=== PATIENT | female | born 1955 | race Caucasian/White ===

== ENCOUNTER → 2016-08-23 | Outpatient (REF) | payer OTHER ==
[~2016-08-23] MED LIST: HCTZ; HYDR25TA6; LISI20TA5; LISI40TA; TRAZ100T; VALI10TA; VALI5TAB; ZEST20TA4; ZOLO100T; lisinopril
== END ==
LOC: M SFHCCLAY 11:37
PROVIDERS: ATTEND Family Medicine
DX: E11.9 Type 2 diabetes mellitus without complications (principal)

== ENCOUNTER → 2016-08-25 | Outpatient (CLI) | payer OTHER ==
--- NOTE | 2016-09-06 01:22 | ECWPNPC ---
PATIENT NAME: INGA MARTINEZ : 1955 GENDER: FEMALE VISIT DATE: 08/25/2016 DISCHARGE DATE: 08/25/16 1546 VISIT LOCKED DATE TIME: PHYSICIAN: ALBERTO BAKER PHYSICIAN PAGER NO: [phone] RESOURCE: ALBERTO BAKER REASON FOR APPOINTMENT 1. BACK HISTORY OF PRESENT ILLNESS HISTORY OF PRESENT ILLNESS: PAIN THE PATIENT DESCRIBES THE PAIN... FALL RISK SCREENING: SCREENING :NO FALLS IN THE PAST YEAR TODAY'S VISIT: NOTES: FIRST RETURN TO THE CLINIC SINCE INITIAL VISIT 01/2016. CONTINUES TO HAVE PAIN AT CENTER LOW BACK. DESCRIBES PAIN ACHING, OCCASIONALLY SHARP, AND IS TENDER AND INSIDE ANKLE. WALKED 1//2 BLOCKS TO APPOINTMENT AND NOTES THAT ANKLE IS THE MOST PAINFUL AT THIS TIME. RATES PAIN 5-6/10. TODAY. . CURRENT MEDICATIONS TAKING ROPINIROLE HCL 2 MG TABLET 1 TABLET 1 TO 3 HOURS BEFORE BEDTIME ORALLY ONCE A DAY TAKING ASPIRIN 81 MG TABLET 1 TABLET ORALLY ONCE A DAY TAKING LANCETS FREE STYLE ------ ------ - DAILY TAKING LANCET DEVICES - - - SUBCUTANEOUSLY DAILY TAKING [employer] SYSTEM W/DEVICE KIT DIRECTED DAILY TAKING SERTRALINE HCL 100 MG TABLET 2 TABS ORALLY ONCE A DAY TAKING [employer] ULTRA II TEST STRIPS MINI STRIP DIRECTED IN VITRO DAILY TAKING FENOFIBRATE 160 MG TABLET 1 TABLET WITH A MEAL ORALLY ONCE A DAY TAKING TRAZODONE HCL 100 MG TABLET 1/2-1 TAB ORALLY BEDTIME TAKING [employer] ULTRA TEST - STRIP USE TO TEST DAILY DIRECTED TAKING PRADAXA 150 MG CAPSULE 1 CAP(S) ORALLY BID TAKING LISINOPRIL 2.5 MG TABLET DIRECTED ORALLY TAKING BISOPROLOL FUMARATE 5 MG TABLET 1/2 TABLET ORALLY ONCE A DAY TAKING GABAPENTIN 600 MG TABLET 1 TABLET ORALLY BEDTIME TAKING METFORMIN HCL 1000 MG TABLET 1 TABLET WITH MEALS ORALLY TWICE A DAY TAKING GLIMEPIRIDE 4 MG TABLET 1&1/2 TABLET ORALLY ONCE A DAY TAKING ATORVASTATIN CALCIUM 10 MG TABLET 1 TABLET ORALLY ONCE A DAY TAKING JARDIANCE 10 MG TABLET TAKE ONE TABLET BY MOUTH EVERY DAY ORALLY DAILY NOT-TAKING FENOFIBRATE 145 MG TABLET 1 TAB(S) ORALLY DAILY NOT-TAKING INSULIN PEN NEEDLE 32G X 5 MM MISCELLANEOUS 1 SUBCUTANEOUSLY DAILY NOT-TAKING ABILIFY 2 MG TABLET 1 TABLET ORALLY ONCE A DAY MEDICATION LIST REVIEWED AND RECONCILED WITH THE PATIENT PAST MEDICAL HISTORY HYPERTENSION DEPRESSION LEFT MASTECTOMY OSTEOARTHRITIS OF THE HANDS KNEES AND SHOULDERS MENOPAUSAL RESTLESS LEG SYNDROME ELEVATED CHOLESTEROL GERD DEGENERATIVE CERVICAL SPINE SUICIDAL ATTEMPT BY OVERDOSE OF VALIUM 02/10 ONE VITAMIN D GENERALIZED OSTEOARTHRITIS 05/12 HEART DISEASE UNSPECIFIED ESSENTIAL HYPERTENSION OTHER AND UNSPECIFIED HYPERLIPIDEMIA UNSPECIFIED VITAMIN D DEFICIENCY UNSPECIFIED ANEMIA DIARRHEA ATRIAL FIBRILLATION UNSPECIFIED VITAMIN D DEFICIENCY PERSONAL HISTORY OF MALIGNANT NEOPLASM OF BREAST MIGRAINE WITHOUT AURA, WITHOUT MENTION OF INTRACTABLE MIGRAINE WITHOUT MENTION OF STATUS MIGRAINOSUS DIABETES MELLITUS WITHOUT MENTION OF COMPLICATION, TYPE II OR UNSPECIFIED TYPE, NOT STATED UNCONTROLLED MIXED HYPERLIPIDEMIA PSORIASIS RELATED DISEASE NEC GENERALIZED OSTEOARTHROSIS, INVOLVING MULTIPLE SITES PERSONAL HISTORY OF NONCOMPLIANCE WITH MEDICAL TREATMENT, PRESENTING HAZARDS TO HEALTH UMBILICAL HERNIA WITHOUT MENTION OF OBSTRUCTION OR GANGRENE BREAST CANCER SCREENING RESTLESS LEGS SYNDROME OTHER SCREENING MAMMOGRAM NEED FOR PNEUMOCOCCAL VACCINE HX OF TOBACCO USE, PRESENTING HAZARDS TO HEALTH KYPHOSCOLIOSIS AUDITORY HALLUCINATION AUDITORY HALLUCINATION SARAVANAN ALLERGIES LATEX: RASH: ALLERGY DEMEROL: DIZZINES, CONFUSION, LIGHTHEADED: SIDE EFFECTS SOCIAL HISTORY GENERAL: TOBACCO USE ARE YOU A:CURRENT SMOKER HOW MANY CIGARETTES A DAY DO YOU SMOKE?11-20 HOW SOON AFTER YOU WAKE UP DO YOU SMOKE YOUR FIRST CIGARETTE?31-60 MIN HOW OFTEN DO YOU SMOKE CIGARETTES?EVERY DAY PATIENT COUNSELED ON THE DANGERS OF TOBACCO USE AND URGED TO QUIT:08/23/2016 ARE YOU INTERESTED IN QUITTING?THINKING ABOUT QUITTING PREVIOUS QUIT ATTEMPTS?YES, MORE THAN 6 MONTHS AGO. COUNSELED THE PATIENT ON SMOKING CESSATION, EDUCATION [id number]/22/2017 ADDITIONAL FINDINGS: TOBACCO USERHEAVY CIGARETTE SMOKER (20-39 CIGS/DAY) SMOKING CESSATION INFORMATION GIVEN08/23/2016 VAPORNO E-CIGARETTEYES BMI CARE GOAL FOLLOW-UP ABOVE NORMAL BMI FOLLOW-UPDIETARY MANAGEMENT EDUCATION, GUIDANCE, AND COUNSELING ALCOHOL SCREENING DID YOU HAVE A DRINK CONTAINING ALCOHOL IN THE PAST YEAR?NO POINTS0 INTERPRETATIONNEGATIVE RECREATIONAL DRUG USE DRUG USE? NO , PATIENT DENIES ABUSE OR MISSUSED OF ANY MEDICATION . , PATIENT DENIES USE OF ANY ILLEGAL SUBSTANCE INCLUDING MARIJUANA OR COCAINE . . CAFFEINE CAFFEINE USE? YES , HOW OFTEN AND HOW MUCH? 2-3 CUPS COFFEE ; 2-3 SODAS PER DAY. HIV / HEP-C SCREENING HIV TEST OFFERED TO PATIENT:YES DATE OFFERED:08/23/2016 TEST ACCEPTED:NO REASON:PATIENT DECLINED HEP-C TEST OFFERED TO PATIENT:YES DATE OFFERED:08/23/2016 TEST ACCEPTED:NO REASON:PATIENT DECLINED MARITAL STATUS: .. LANGUAGE AMHARIC. LEARNING BARRIERS / SPECIAL NEEDS BARRIERS TO LEARNING?NO HEARING IMPAIRED?NO VISION IMPAIRED?YES :CORRECTIVE LENSES COGNITIVELY IMPAIRED?NO READINESS TO LEARN?YES LEARNING PREFERENCES?NO LEARNING CAPABILITIES PRESENT?YES EMOTIONAL BARRIERS?NO SPECIAL DEVICES?NO FAMILY PROGRAM SPECIALIST NEEDED?NO PSYCHOLOGICAL HX TREATMENT YES , HOW OFTEN AND HOW MUCH? EVERY 2-3 WEEKS FOR MANY YEARS. PAIN CLINIC PFS, CLERGY, PUBLIC HEALTH REFERRALS PFS REFERRAL NEEDED? NO , CLERGY REFERRAL NEEDED? NO , PUBLIC HEALTH REFERRAL NEEDED? NO , WAS THE PROVIDER NOTIFIED OF ANY PERTINENT INFO? NO . PATIENT: DENIES USE OF ANY ILLEGAL SUBSTANCE INCLUDING MARIJUANA OR COCAINE, REPORTS BEING EMOTIONALLY STABLE, REPORTS HAVING A SAFE AND ADEQUATE PLACE TO STORE THE MEDICATIONS, IS AWARE THAT THEY ARE RESPONSIBLE AND GUARDIAN OF THE PRESCRIBED MEDICATIONS, DENIES RECREATIONAL DRUG USE. ADVANCED DIRECTIVES HEALTH CARE PROXY? YES , POWER OF [place] TOWER LOADER? NO , NAME OF HCP TY OVIEDO, CONTACT # FOR HCP [phone], IF YES, DO YOU HAVE A COPY WITH YOU? NO , DO YOU HAVE A DNR? NO , IF YES, DO YOU HAVE A COPY WITH YOU? NO . TRAVEL OUTSIDE US: NO. HOUSING: RENTS APARTMENT. REVIEW OF SYSTEMS CONSTITUTIONAL: ANY CHANGE IN YOUR MEDICAL CONDITION? NO . CHILLS NO . FEVER NO . INFECTION: DO YOU HAVE NEW INFECTIONS? NO . DO YOU HAVE HISTORY OF MRSA? NO . MUSCULOSKELETAL: ANY NEW PATTERNS OF PAIN OR NUMBNESS? NO . GASTROENTEROLOGY: ANY NEW CHANGE IN BOWEL CONTROL? YES ONCE A MONTH BAD DIARHEA . GENITOURINARY: ANY NEW CHANGE IN BLADDER CONTROL? NO . IS THERE A CHANCE YOU COULD BE ? NO . HEMATOLOGY/LYMPH: DO YOU TAKE ANY BLOOD THINNERS? (FOR EXAMPLE- COUMADIN, PLAVIX, AGGRENOX, PLATEL, PRADAXA, OR XARELTO) NO . WHEN WAS YOUR LAST DOSE? DATE: TIME: . NEUROLOGY: HAVE YOU FALLEN IN THE PAST 6 MONTHS? NO . ANY NEW EXTREMITY NUMBNESS OR WEAKNESS? NO . CARDIOLOGY: DO YOU HAVE A PACEMAKER OR DEFIBRILLATOR? NO . CHEST PAIN DENIES . RESPIRATORY: HAVE YOU BEEN SICK IN THE PAST WEEK? NO . FEVER NO . FLU LIKE SYMPTOMS? NO . COUGH SMOKERS COUGH. IS CONSIDERING SMOKING CESSATION . INTEGUMENTARY: DO YOU HAVE ANY RASHES OR OPEN SORES? NO . ALLERGIC/IMMUNO: ARE YOU ALLERGIC TO SHELLFISH OR IV DYE? NO . ANY NEW ALLERGIES? NO . PSYCHIATRIC: DO YOU HAVE THOUGHTS OF HURTING YOURSELF OR SOMEONE ELSE? NO . ARE YOU ABUSED, NEGLECTED, OR IN AN UNSAFE ENVIRONMENT? NO . ENDOCRINOLOGY: ARE YOU DIABETIC? YES . OTHER: DO YOU NEED ANY PRESCRIPTIONS? NO . IF YES, PLEASE LIST: ____ . ANY NEW PROBLEMS WITH YOUR MEDICATIONS? NO . WHEN DID YOU LAST EAT? ____ . WHEN DID YOU LAST DRINK? ____ . WHAT DID YOU LAST DRINK? ____ . NAME OF PERSON DRIVING YOU HOME? ____ . DO YOU HAVE ANY OTHER QUESTIONS OR CONCERNS NO . REVIEWED BY: PROVIDER: ALBERTO BRUNNER . VITAL SIGNS WT 205.2 LBS, HT 5', BMI 40.07 INDEX, BP 127/77 MM HG, HR 99 /MIN, RR 18 /MIN, TEMP 97.2 F, OXYGEN SAT % 94%, NA INITIALS SC 14:46. EXAMINATION GENERAL EXAMINATION: PSYCHALERT , ORIENTED X 3 , APPROPRIATE MOOD AND AFFECT . LUNGS:CLEAR TO AUSCULTATION BILATERALLY, NO WHEEZES, RALES OR RHONCHI. HEART:HEART RATE REGULAR. MUSCULOSKELETAL:POINT TENDERNESS OVER LEFT LSA AND LEFT SIJ. , TRIGGER POINTS AND TIGHT FIBROUS BANDS IDENTIFIED OVER LUMBAR PARAVEREBRAL MUSCLES AND ACROSS THE SACRUM. DECREASE IN ROM WITH FELXION, EXTENSION AND ROTATION. GAIT NONANTALGIC. ASSESSMENTS LUMBAR FACET ARTHROPATHY - M12.88 (PRIMARY) LOW BACK PAIN - M54.5 MYALGIA - M79.1 TREATMENT LUMBAR FACET ARTHROPATHY INJECTION FACET JOINT/NERVE NOMAN/SACRALALBERTO BAKER 08/25/2016 3:23:19 PM > DIAGNOSTIC LUMBAR FACET BLOCK #1 LEFT SIDE L4-5, L5-S1 ALBERTO BAKER 08/25/2016 3:23:19 PM > DIAGNOSTIC LUMBAR FACET BLOCK #1 LEFT SIDE L4-5, L5-S1 ALBERTO BAKER 08/25/2016 3:23:41 PM > ON PRADAXA NOTES: CONTINUE CURRENT MEDS PER PRIMARY DOC, KEEP WALKINGHOLD BLOOD SUGAR MEDS AM OF PROCEDURE. WILL GET OK FROM DR VIRAMONTES TO HOLD PRADAXA FOR 72 HOURS PRIOR TO PROCEDURE. PROCEDURE CODES FA211 ESTABILISHED PATIENT [facility] CHARGE DISPOSITION & COMMUNICATION FOLLOW UP ONE MONTH (REASON: NEED OK FROM DR VIRAMONTES TO HOLD PRAHERIBERTO, AUTH FORDIAGNOSTIC FACET BLOCK AT L4-5, L5S1) ELECTRONICALLY SIGNED BY NAYELY PEÑA ON 09/05/2016 AT 10:36 AM EDT DISCLAIMER : THIS IS A VISIT SUMMARY EXTRACTED FROM THE [facility] CHART. IT IS NOT A COPY OF THE [facility] PROGRESS NOTE. ANDREW
== END ==
LOC: M PAIN 14:40
PROVIDERS: ATTEND Nurse Practitioner Family
DX: M12.88 Other specific arthropathies, not elsewhere classified, other specified site (principal); M54.5 Low back pain; M79.1 Myalgia; Z79.82 Long term (current) use of aspirin; Z79.891 Long term (current) use of opiate analgesic; Z79.899 Other long term (current) drug therapy; Z79.84 Long term (current) use of oral hypoglycemic drugs; F17.210 Nicotine dependence, cigarettes, uncomplicated; Z91.040 Latex allergy status; Z88.5 Allergy status to narcotic agent; I10 Essential (primary) hypertension; I48.2 Chronic atrial fibrillation; E11.9 Type 2 diabetes mellitus without complications

== ENCOUNTER → 2016-09-28 | Outpatient (CLI) | payer OTHER ==
[~2016-09-28] MED LIST changes: +BUPIVACAINE HCL 0.25% 30 ML VIAL As Ordered ONE; +ISOVUE-M 300 61% 15ML VIAL (Q9967) As Ordered ONE; +LIDOCAINE 1% SDV INJ 30 ML VIAL As Ordered ONE
--- NOTE | 2016-10-01 23:54 | ECWPNPC ---
PATIENT NAME: INGA MARTINEZ : 1955 GENDER: FEMALE VISIT DATE: 09/28/2016 DISCHARGE DATE: 09/28/16 1249 VISIT LOCKED DATE TIME: PHYSICIAN: BOB CHARLES PHYSICIAN PAGER NO: [phone] RESOURCE: BOB CHARLES REASON FOR APPOINTMENT 1. LUMBAR FACET HISTORY OF PRESENT ILLNESS HISTORY OF PRESENT ILLNESS: PAIN THE PATIENT DESCRIBES THE PAIN... 61 YEAR OLD FEMALE PATIENT WITH HISTORY OF CHRONIC LOW BACK PAIN. PATIENT DESCRIBES THE PAIN ACHING, BURNING, AND TENDER WITH A PAIN SCORE OF 8.5/10 ON TODAY'S VISIT. PATIENT REPORTS OF NUMBNESS DOWN THE LEG, AND HER BACK IS HURTING THE MOST TODAY. PATIENT STATES THAT SHE IS TAKING PRADAXA DUE TO ATRIAL FIBRILLATION. PATIENT DENIES UNEXPLAINABLE WEIGHT LOSS, FEVER, CHILLS, NEW CHANGES ON HER URINARY OR BOWEL CONTROL. FALL RISK SCREENING: SCREENING :TWO OR MORE FALLS WITHOUT INJURY IN THE PAST YEAR CURRENT MEDICATIONS TAKING ROPINIROLE HCL 2 MG TABLET 1 TABLET 1 TO 3 HOURS BEFORE BEDTIME ORALLY ONCE A DAY, NOTES: 09/27/16@2130 TAKING ASPIRIN 81 MG TABLET 1 TABLET ORALLY ONCE A DAY, NOTES: 0600 TAKING LANCETS FREE STYLE ------ ------ - DAILY TAKING LANCET DEVICES - - - SUBCUTANEOUSLY DAILY TAKING [employer] ULTRA SYSTEM W/DEVICE KIT DIRECTED DAILY TAKING [employer] ULTRA II TEST STRIPS MINI STRIP DIRECTED IN VITRO DAILY TAKING FENOFIBRATE 160 MG TABLET 1 TABLET WITH A MEAL ORALLY ONCE A DAY, NOTES: 09/27/16@1800 TAKING [employer] ULTRA TEST - STRIP USE TO TEST DAILY DIRECTED TAKING PRADAXA 150 MG CAPSULE 1 CAP(S) ORALLY BID, NOTES: 09/24/16/@1900 TAKING LISINOPRIL 2.5 MG TABLET DIRECTED ORALLY , NOTES: 0600 TAKING BISOPROLOL FUMARATE 5 MG TABLET 1/2 TABLET ORALLY ONCE A DAY, NOTES: 0600 TAKING GABAPENTIN 600 MG TABLET 1 TABLET ORALLY BEDTIME, NOTES: 09/27/16@1900 TAKING METFORMIN HCL 1000 MG TABLET 1 TABLET WITH MEALS ORALLY TWICE A DAY, NOTES: 0600 TAKING ATORVASTATIN CALCIUM 10 MG TABLET 1 TABLET ORALLY ONCE A DAY, NOTES: 0600 TAKING JARDIANCE 10 MG TABLET TAKE ONE TABLET BY MOUTH EVERY DAY ORALLY DAILY, NOTES: 0600 TAKING SERTRALINE HCL 100 MG TABLET 2 TABS ORALLY ONCE A DAY, NOTES: 0600 TAKING TRAZODONE HCL 100 MG TABLET 1/2-1 TAB ORALLY BEDTIME, NOTES: TAKING GLIMEPIRIDE 4 MG TABLET 1&1/2 TABLET ORALLY ONCE A DAY, NOTES: 0600 NOT-TAKING FENOFIBRATE 145 MG TABLET 1 TAB(S) ORALLY DAILY NOT-TAKING INSULIN PEN NEEDLE 32G X 5 MM MISCELLANEOUS 1 SUBCUTANEOUSLY DAILY NOT-TAKING ABILIFY 2 MG TABLET 1 TABLET ORALLY ONCE A DAY MEDICATION LIST REVIEWED AND RECONCILED WITH THE PATIENT PAST MEDICAL HISTORY HYPERTENSION DEPRESSION LEFT MASTECTOMY OSTEOARTHRITIS OF THE HANDS KNEES AND SHOULDERS MENOPAUSAL RESTLESS LEG SYNDROME ELEVATED CHOLESTEROL GERD DEGENERATIVE CERVICAL SPINE SUICIDAL ATTEMPT BY OVERDOSE OF VALIUM 02/10 ONE VITAMIN D GENERALIZED OSTEOARTHRITIS 05/12 HEART DISEASE UNSPECIFIED ESSENTIAL HYPERTENSION OTHER AND UNSPECIFIED HYPERLIPIDEMIA UNSPECIFIED VITAMIN D DEFICIENCY UNSPECIFIED ANEMIA DIARRHEA ATRIAL FIBRILLATION UNSPECIFIED VITAMIN D DEFICIENCY PERSONAL HISTORY OF MALIGNANT NEOPLASM OF BREAST MIGRAINE WITHOUT AURA, WITHOUT MENTION OF INTRACTABLE MIGRAINE WITHOUT MENTION OF STATUS MIGRAINOSUS DIABETES MELLITUS WITHOUT MENTION OF COMPLICATION, TYPE II OR UNSPECIFIED TYPE, NOT STATED UNCONTROLLED MIXED HYPERLIPIDEMIA PSORIASIS RELATED DISEASE NEC GENERALIZED OSTEOARTHROSIS, INVOLVING MULTIPLE SITES PERSONAL HISTORY OF NONCOMPLIANCE WITH MEDICAL TREATMENT, PRESENTING HAZARDS TO HEALTH UMBILICAL HERNIA WITHOUT MENTION OF OBSTRUCTION OR GANGRENE BREAST CANCER SCREENING RESTLESS LEGS SYNDROME OTHER SCREENING MAMMOGRAM NEED FOR PNEUMOCOCCAL VACCINE HX OF TOBACCO USE, PRESENTING HAZARDS TO HEALTH KYPHOSCOLIOSIS AUDITORY HALLUCINATION AUDITORY HALLUCINATION SARAVANAN ALLERGIES LATEX: RASH: ALLERGY DEMEROL: DIZZINES, CONFUSION, LIGHTHEADED: SIDE EFFECTS SURGICAL HISTORY EXPLORATORY PELVIC SURGERY APPENDECTOMY CERVICAL BIOPSY BREAST BIOPSY WITH RADICAL MASTECTOMY ON THE LEFT 1996 RIGHT CARPAL TUNNEL TUBAL LIGATION 1991 SURGERY ON HER LEFT FOOT SEPTEMBER 2009 HERNIA-ABDOMINAL 07/2013 D&C WITH POLYP REMOVAL 2013 FAMILY HISTORY FATHER: , BRAIN CANCER MOTHER: , MS PATERNAL GRAND MOTHER: , DIAGNOSED WITH DIABETES 1 BROTHER(S) . 2 SON(S) , 1 DAUGHTER(S) . SOCIAL HISTORY GENERAL: TOBACCO USE ARE YOU A:CURRENT SMOKER PATIENT COUNSELED ON THE DANGERS OF TOBACCO USE AND URGED TO QUIT:09/28/2016 ARE YOU INTERESTED IN QUITTING?THINKING ABOUT QUITTING COUNSELED THE PATIENT ON SMOKING CESSATION, EDUCATION [id number]/27/2017 PAIN CLINIC PFS, CLERGY, PUBLIC HEALTH REFERRALS CLERGY REFERRAL NEEDED?NO WAS THE PROVIDER NOTIFIED OF ANY PERTINENT INFO?NO PFS REFERRAL NEEDED?NO PUBLIC HEALTH REFERRAL NEEDED?NO PATIENT: ____. HOSPITALIZATION/MAJOR DIAGNOSTIC PROCEDURE [facility] REVIEW OF SYSTEMS CONSTITUTIONAL: ANY CHANGE IN YOUR MEDICAL CONDITION? NO . CHILLS NO . FEVER NO . INFECTION: DO YOU HAVE NEW INFECTIONS? NO . DO YOU HAVE HISTORY OF MRSA? NO . MUSCULOSKELETAL: ANY NEW PATTERNS OF PAIN OR NUMBNESS? YES, . GASTROENTEROLOGY: ANY NEW CHANGE IN BOWEL CONTROL? NO . GENITOURINARY: ANY NEW CHANGE IN BLADDER CONTROL? NO . IS THERE A CHANCE YOU COULD BE ? NO . HEMATOLOGY/LYMPH: DO YOU TAKE ANY BLOOD THINNERS? (FOR EXAMPLE- COUMADIN, PLAVIX, AGGRENOX, PLATEL, PRADAXA, OR XARELTO) NO . WHEN WAS YOUR LAST DOSE? DATE: TIME: 09/24/16@1900 . NEUROLOGY: HAVE YOU FALLEN IN THE PAST 6 MONTHS? YES . ANY NEW EXTREMITY NUMBNESS OR WEAKNESS? YES, BOTH LEGS ARE GOING NUMB . CARDIOLOGY: DO YOU HAVE A PACEMAKER OR DEFIBRILLATOR? NO . RESPIRATORY: HAVE YOU BEEN SICK IN THE PAST WEEK? NO . FEVER NO . FLU LIKE SYMPTOMS? NO . COUGH NO . INTEGUMENTARY: DO YOU HAVE ANY RASHES OR OPEN SORES? NO . ALLERGIC/IMMUNO: ARE YOU ALLERGIC TO SHELLFISH OR IV DYE? NO . ANY NEW ALLERGIES? NO . PSYCHIATRIC: DO YOU HAVE THOUGHTS OF HURTING YOURSELF OR SOMEONE ELSE? NO . ARE YOU ABUSED, NEGLECTED, OR IN AN UNSAFE ENVIRONMENT? NO . ENDOCRINOLOGY: ARE YOU DIABETIC? YES . OTHER: DO YOU NEED ANY PRESCRIPTIONS? NO . IF YES, PLEASE LIST: ____ . ANY NEW PROBLEMS WITH YOUR MEDICATIONS? NO . WHEN DID YOU LAST EAT? ____ . WHEN DID YOU LAST DRINK? ____ . WHAT DID YOU LAST DRINK? ____ . NAME OF PERSON DRIVING YOU HOME? ____ . DO YOU HAVE ANY OTHER QUESTIONS OR CONCERNS NO . REVIEWED BY: PROVIDER: BOB CHARLES MD . VITAL SIGNS WT 208.0 LBS, HT 5', BMI 40.62 INDEX, BP 127/80 MM HG, HR 67 /MIN, RR 16 /MIN, TEMP 97.0 F, OXYGEN SAT % 94%, NA INITIALS TL 1048, REVIEWED BY: VD. EXAMINATION : PATIENT IS ALERT O X 3 AND COOPERATIVE. THERE IS TENDERNESS IN THE LOW BACK PARASPINAL MUSCLE GROUP WITH BANDS OF TISSUES, RESTRICTION OF MOVEMENT, AND PRESENCE OF TRIGGER POINTS. ASSESSMENTS MYALGIA - M79.1 (PRIMARY) LOW BACK PAIN - M54.5 SPONDYLOSIS WITHOUT MYELOPATHY OR RADICULOPATHY, LUMBAR REGION - M47.816 SPONDYLOSIS WITHOUT MYELOPATHY OR RADICULOPATHY, LUMBOSACRAL REGION - M47.817 TREATMENT MYALGIA NOTES: WE DISCUSSED SEVERAL ISSUES WITH MS. MARTINEZ'S PAIN MANAGEMENT CASE. AT THIS TIME THE PATIENT WILL CONTINUE ON THE SAME MEDICATION REGIMEN BEFORE. AFTER EXAMINING THE PATIENT SHE IS A GOOD CANDIDATE FOR A TPI, WE DISCUSSED THE RISK, BENEFITS, AND ALTERNATIVES AND THE PATIENT WOULD LIKE TO PROCEED. PATIENT WILL BE BOOKED PENDING APPROVAL. INSTRUCTIONS WERE GIVEN, QUESTIONS WERE ANSWERED, PATIENT REPORTS UNDERSTANDING AND AGREES WITH THE PLAN. I, PAUL WILKERSON, DOCUMENTED THE ABOVE INFORMATION ACTING A SCRIBE FOR DR. CHARLES. I HAVE REVIEWED THE ABOVE DOCUMENT, WRITTEN BY PAUL WILKERSON SCRIBMerari AND I VERIFY THAT IT IS ACCURATE. OTHERS NOTES: TRIGGER POINT INJECTION MATERIAL WAS PRINTED. [facility]NOST[facility] FACET BLOCK (PAIN)[id number] PROCEDURE CODES FA211 ESTABILISHED PATIENT [facility] FACILITY CHARGE G8730 PAIN ASSESS POS TOOL F/U PLAN DOC [id number] DOC MEDS VERIFIED W/PT OR RE DISPOSITION & COMMUNICATION FOLLOW UP TPI PENDING APPROVAL ELECTRONICALLY SIGNED BY BOB CHARLES MD ON 10/01/2016 AT 12:38 PM EDT DISCLAIMER : THIS IS A VISIT SUMMARY EXTRACTED FROM THE [employer] CHART. IT IS NOT A COPY OF THE [employer] PROGRESS NOTE. MTDD
== END ==
LOC: M PAIN 11:00
PROVIDERS: ATTEND Anesthesiology
DX: M79.1 Myalgia (principal); M54.5 Low back pain; M47.816 Spondylosis without myelopathy or radiculopathy, lumbar region; M47.817 Spondylosis without myelopathy or radiculopathy, lumbosacral region; Z79.82 Long term (current) use of aspirin; Z79.84 Long term (current) use of oral hypoglycemic drugs; Z79.891 Long term (current) use of opiate analgesic; Z79.899 Other long term (current) drug therapy; I10 Essential (primary) hypertension; E11.9 Type 2 diabetes mellitus without complications; F32.9 Major depressive disorder, single episode, unspecified; D64.9 Anemia, unspecified; I48.2 Chronic atrial fibrillation; M15.9 Polyosteoarthritis, unspecified; Z85.3 Personal history of malignant neoplasm of breast; E78.00 Pure hypercholesterolemia, unspecified; K21.9 Gastro-esophageal reflux disease without esophagitis; G25.81 Restless legs syndrome; E78.5 Hyperlipidemia, unspecified; Z72.0 Tobacco use

== ENCOUNTER → 2016-10-06 | Outpatient (CLI) | payer OTHER ==
[~2016-10-06] MED LIST changes: +BUPIVACAINE HCL 0.25% 10 ML VIAL As Ordered ONE; -ISOVUE-M 300 61% 15ML VIAL (Q9967) As Ordered ONE; -LIDOCAINE 1% SDV INJ 30 ML VIAL As Ordered ONE; +TRIAMCINOLONE ACETONIDE SUSP 40 MG/ML VIAL (J3301) As Ordered ONE; +diazePAM 5 MG TAB As Ordered ONE; +oxyCODONE 5MG TAB As Ordered ONE
--- NOTE | 2016-10-10 00:18 | ECWPNPC ---
PATIENT NAME: INGA MARTINEZ : 1955 GENDER: FEMALE VISIT DATE: 10/06/2016 DISCHARGE DATE: 10/06/16 1050 VISIT LOCKED DATE TIME: PHYSICIAN: BOB CHARLES PHYSICIAN PAGER NO: [phone] RESOURCE: BOB CHARLES REASON FOR APPOINTMENT 1. TPI HISTORY OF PRESENT ILLNESS HISTORY OF PRESENT ILLNESS: PAIN THE PATIENT DESCRIBES THE PAIN... FALL RISK SCREENING: SCREENING :NO FALLS IN THE PAST YEAR CURRENT MEDICATIONS TAKING ROPINIROLE HCL 2 MG TABLET 1 TABLET 1 TO 3 HOURS BEFORE BEDTIME ORALLY ONCE A DAY, NOTES: 10/05/162199 TAKING ASPIRIN 81 MG TABLET 1 TABLET ORALLY ONCE A DAY, NOTES: 10/06/16599 TAKING LANCETS FREE STYLE ------ ------ - DAILY TAKING LANCET DEVICES - - - SUBCUTANEOUSLY DAILY TAKING [employer] ULTRA SYSTEM W/DEVICE KIT DIRECTED DAILY TAKING [employer] ULTRA II TEST STRIPS MINI STRIP DIRECTED IN VITRO DAILY TAKING FENOFIBRATE 160 MG TABLET 1 TABLET WITH A MEAL ORALLY ONCE A DAY, NOTES: 10/05/161899 TAKING [employer] ULTRA TEST - STRIP USE TO TEST DAILY DIRECTED TAKING PRADAXA 150 MG CAPSULE 1 CAP(S) ORALLY BID, NOTES: 10/06/16599 TAKING LISINOPRIL 2.5 MG TABLET DIRECTED ORALLY ONCE A DAY, NOTES: 10/06/16599 TAKING BISOPROLOL FUMARATE 5 MG TABLET 1/2 TABLET ORALLY ONCE A DAY, NOTES: 10/06/16599 TAKING GABAPENTIN 600 MG TABLET 1 TABLET ORALLY BEDTIME, NOTES: 10/05/162199 TAKING METFORMIN HCL 1000 MG TABLET 1 TABLET WITH MEALS ORALLY TWICE A DAY, NOTES: 10/05/161899 TAKING ATORVASTATIN CALCIUM 10 MG TABLET 1 TABLET ORALLY ONCE A DAY, NOTES: 10/06/16499 TAKING JARDIANCE 10 MG TABLET TAKE ONE TABLET BY MOUTH EVERY DAY ORALLY DAILY, NOTES: 10/05/16599 TAKING SERTRALINE HCL 100 MG TABLET 2 TABS ORALLY ONCE A DAY, NOTES: 10/06/16599 TAKING TRAZODONE HCL 100 MG TABLET 1/2-1 TAB ORALLY BEDTIME, NOTES: 10/05/162199 TAKING GLIMEPIRIDE 4 MG TABLET 1&1/2 TABLET ORALLY ONCE A DAY, NOTES: 10/06/16 0600 NOT-TAKING FENOFIBRATE 145 MG TABLET 1 TAB(S) ORALLY DAILY NOT-TAKING INSULIN PEN NEEDLE 32G X 5 MM MISCELLANEOUS 1 SUBCUTANEOUSLY DAILY NOT-TAKING ABILIFY 2 MG TABLET 1 TABLET ORALLY ONCE A DAY MEDICATION LIST REVIEWED AND RECONCILED WITH THE PATIENT PAST MEDICAL HISTORY HYPERTENSION DEPRESSION LEFT MASTECTOMY OSTEOARTHRITIS OF THE HANDS KNEES AND SHOULDERS MENOPAUSAL RESTLESS LEG SYNDROME ELEVATED CHOLESTEROL GERD DEGENERATIVE CERVICAL SPINE SUICIDAL ATTEMPT BY OVERDOSE OF VALIUM 02/10 ONE VITAMIN D GENERALIZED OSTEOARTHRITIS 05/12 HEART DISEASE UNSPECIFIED ESSENTIAL HYPERTENSION OTHER AND UNSPECIFIED HYPERLIPIDEMIA UNSPECIFIED VITAMIN D DEFICIENCY UNSPECIFIED ANEMIA DIARRHEA ATRIAL FIBRILLATION UNSPECIFIED VITAMIN D DEFICIENCY PERSONAL HISTORY OF MALIGNANT NEOPLASM OF BREAST MIGRAINE WITHOUT AURA, WITHOUT MENTION OF INTRACTABLE MIGRAINE WITHOUT MENTION OF STATUS MIGRAINOSUS DIABETES MELLITUS WITHOUT MENTION OF COMPLICATION, TYPE II OR UNSPECIFIED TYPE, NOT STATED UNCONTROLLED MIXED HYPERLIPIDEMIA PSORIASIS RELATED DISEASE NEC GENERALIZED OSTEOARTHROSIS, INVOLVING MULTIPLE SITES PERSONAL HISTORY OF NONCOMPLIANCE WITH MEDICAL TREATMENT, PRESENTING HAZARDS TO HEALTH UMBILICAL HERNIA WITHOUT MENTION OF OBSTRUCTION OR GANGRENE BREAST CANCER SCREENING RESTLESS LEGS SYNDROME OTHER SCREENING MAMMOGRAM NEED FOR PNEUMOCOCCAL VACCINE HX OF TOBACCO USE, PRESENTING HAZARDS TO HEALTH KYPHOSCOLIOSIS AUDITORY HALLUCINATION AUDITORY HALLUCINATION SARAVANAN ALLERGIES LATEX: RASH: ALLERGY DEMEROL: DIZZINES, CONFUSION, LIGHTHEADED: SIDE EFFECTS SURGICAL HISTORY EXPLORATORY PELVIC SURGERY APPENDECTOMY CERVICAL BIOPSY BREAST BIOPSY WITH RADICAL MASTECTOMY ON THE LEFT 1996 RIGHT CARPAL TUNNEL TUBAL LIGATION 1991 SURGERY ON HER LEFT FOOT SEPTEMBER 2009 HERNIA-ABDOMINAL 07/2013 D&C WITH POLYP REMOVAL 2013 HOSPITALIZATION/MAJOR DIAGNOSTIC PROCEDURE [facility] REVIEW OF SYSTEMS CONSTITUTIONAL: ANY CHANGE IN YOUR MEDICAL CONDITION? NO . CHILLS NO . FEVER NO . INFECTION: DO YOU HAVE NEW INFECTIONS? NO . DO YOU HAVE HISTORY OF MRSA? NO . MUSCULOSKELETAL: ANY NEW PATTERNS OF PAIN OR NUMBNESS? NO . GASTROENTEROLOGY: ANY NEW CHANGE IN BOWEL CONTROL? NO . GENITOURINARY: ANY NEW CHANGE IN BLADDER CONTROL? NO . IS THERE A CHANCE YOU COULD BE ? NO . HEMATOLOGY/LYMPH: DO YOU TAKE ANY BLOOD THINNERS? (FOR EXAMPLE- COUMADIN, PLAVIX, AGGRENOX, PLATEL, PRADAXA, OR XARELTO) YES . WHEN WAS YOUR LAST DOSE? DATE: TIME: 10/06/16 0600 . NEUROLOGY: HAVE YOU FALLEN IN THE PAST 6 MONTHS? YES . ANY NEW EXTREMITY NUMBNESS OR WEAKNESS? NO . CARDIOLOGY: DO YOU HAVE A PACEMAKER OR DEFIBRILLATOR? NO . RESPIRATORY: HAVE YOU BEEN SICK IN THE PAST WEEK? NO . FEVER NO . FLU LIKE SYMPTOMS? NO . COUGH NO . INTEGUMENTARY: DO YOU HAVE ANY RASHES OR OPEN SORES? NO . ALLERGIC/IMMUNO: ARE YOU ALLERGIC TO SHELLFISH OR IV DYE? NO . ANY NEW ALLERGIES? NO . PSYCHIATRIC: DO YOU HAVE THOUGHTS OF HURTING YOURSELF OR SOMEONE ELSE? NO . ARE YOU ABUSED, NEGLECTED, OR IN AN UNSAFE ENVIRONMENT? NO . ENDOCRINOLOGY: ARE YOU DIABETIC? YES . OTHER: DO YOU NEED ANY PRESCRIPTIONS? NO . IF YES, PLEASE LIST: ____ . ANY NEW PROBLEMS WITH YOUR MEDICATIONS? NO . WHEN DID YOU LAST EAT? 1800 . WHEN DID YOU LAST DRINK? THIS AM . WHAT DID YOU LAST DRINK? WATER . NAME OF PERSON DRIVING YOU HOME? MITCHELL KNIGHT . DO YOU HAVE ANY OTHER QUESTIONS OR CONCERNS NO . REVIEWED BY: PROVIDER: . VITAL SIGNS WT 210.2 LBS, HT 5', BMI 41.05 INDEX, BP 147/66 MM HG, HR 71 /MIN, RR 18 /MIN, TEMP 97.2 F, OXYGEN SAT % 94%, NA INITIALS TL 0919, REVIEWED BY: LS. ASSESSMENTS MYALGIA - M79.1 (PRIMARY) PROCEDURES PN TRIGGER POINT INJECTION WITH STEROIDS PRE PROCEDURE DIAGNOSIS 1. MYALGIA 2. PAIN AT BILATERAL LOWER BACK AREA POST PROCEDURE DIAGNOSIS 1. MYALGIA 2. PAIN AT BILATERAL LOWER BACK AREA PROCEDURE TRIGGER POINT INJECTION AT BILATERAL LOWER BACK AREA SURGEON DR. 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 I EVALUATE THE PATIENT AND REVIEWED THE CHART. THERE IS EVIDENCE OF BANDS OF TISSUE WITH RESTRICTION OF MOVEMENT AND PRESENCE OF TRIGGER POINT AT THE AFFECTED AREA. I WENT OVER THE RISKS, ALTERNATIVES, AND BENEFITS ASSOCIATED WITH THIS PROCEDURE. THE PATIENT WOULD LIKE TO PROCEED AND GIVE CONSENT TO PERFORMED THE PROCEDURE. THE PATIENT DENIES UNEXPLAINABLE WEIGHT LOSS, FEVER, CHILLS, OR NEW CHANGES IN URINARY OR BOWEL CONTROL DESCRIPTION OF PROCEDURE THE PATIENT WAS BROUGHT TO THE PROCEDURE ROOM AND PLACED IN THE SITTING POSITION. THE AREA WAS CLEANED WITH ALCOHOL. THE PROCEDURE WAS DONE USING ASEPTIC STERILE TECHNIQUE. I CHECKED LATERALITY AND THE LEVEL WHERE THE PROCEDURE WAS GOING TO BE PERFORMED WITH THE PATIENT AND THE SUPPORTING STAFF AT THE MOMENT OF THE TIME OUT IN THE PROCEDURE ROOM. USING A 25-GAUGE NEEDLE, TRIGGER POINTS WERE INJECTED AT THE RIGHT AND LEFT LOWER BACK AREA WITH A TOTAL OF 40 ML OF BUPIVACAINE 0.25% AND KENALOG 40 MG. THERE WAS NO EVIDENCE OF BLOOD, PARESTHESIA OR CEREBROSPINAL FLUID DURING THE PROCEDURE. THE PATIENT WAS SENT TO THE RECOVERY ROOM. THE PATIENT WAS MOVING THE EXTREMITIES AND DOING WELL. THERE WAS NO COMPLICATION DURING THE PROCEDURE POST PROCEDURE NOTE THE PATIENT WILL BE SEEN IN A FOLLOW UP IN THE NEXT FEW WEEKS. INSTRUCTIONS WERE GIVEN, QUESTIONS WERE ANSWERED, AND THE PATIENT EXPRESSED UNDERSTANDING AND AGREES WITH THE PLAN. I, PAUL WILKERSON, DOCUMENTED THE ABOVE INFORMATION ACTING A SCRIBE FOR DR. CHARLES. I HAVE REVIEWED THE ABOVE DOCUMENT, WRITTEN BY PAUL WILKERSON SCRIBMerari AND I VERIFY THAT IT IS ACCURATE. PROCEDURE CODES 43025 INJ TRIGGER POINT 06/05 [facility] DISPOSITION & COMMUNICATION FOLLOW UP 3 WEEKS ELECTRONICALLY SIGNED BY BOB CHARLES MD ON 10/09/2016 AT 08:10 PM EDT DISCLAIMER : THIS IS A VISIT SUMMARY EXTRACTED FROM THE [facility] CHART. IT IS NOT A COPY OF THE [employer] PROGRESS NOTE. ANDREW
== END ==
LOC: M PAIN 08:50
PROVIDERS: ATTEND Anesthesiology
DX: G89.29 Other chronic pain (principal); M79.1 Myalgia; M54.5 Low back pain; Z79.82 Long term (current) use of aspirin; Z79.891 Long term (current) use of opiate analgesic; Z79.899 Other long term (current) drug therapy; Z79.84 Long term (current) use of oral hypoglycemic drugs; Z91.040 Latex allergy status; Z88.5 Allergy status to narcotic agent; I10 Essential (primary) hypertension; E78.5 Hyperlipidemia, unspecified; D64.9 Anemia, unspecified; I48.2 Chronic atrial fibrillation; E11.9 Type 2 diabetes mellitus without complications; K21.9 Gastro-esophageal reflux disease without esophagitis
CPT/HCPCS: 20552; J3301

== ENCOUNTER → 2016-11-03 | Outpatient (CLI) | payer OTHER ==
[~2016-11-03] MED LIST changes: -BUPIVACAINE HCL 0.25% 10 ML VIAL As Ordered ONE; -BUPIVACAINE HCL 0.25% 30 ML VIAL As Ordered ONE; -TRIAMCINOLONE ACETONIDE SUSP 40 MG/ML VIAL (J3301) As Ordered ONE; -diazePAM 5 MG TAB As Ordered ONE; -oxyCODONE 5MG TAB As Ordered ONE
--- NOTE | 2016-11-20 00:01 | ECWPNPC ---
PATIENT NAME: INGA MARTINEZ : 1955 GENDER: FEMALE VISIT DATE: 11/03/2016 DISCHARGE DATE: 11/03/16 1233 VISIT LOCKED DATE TIME: PHYSICIAN: ALBERTO BAKER PHYSICIAN PAGER NO: [phone] RESOURCE: ALBERTO BAKER REASON FOR APPOINTMENT 1. BACK HISTORY OF PRESENT ILLNESS HISTORY OF PRESENT ILLNESS: PAIN THE PATIENT DESCRIBES THE PAIN... FALL RISK SCREENING: SCREENING :NO FALLS IN THE PAST YEAR TODAY'S VISIT: NOTES: RATES PAIN TODAY 3/10. DESCRIBES PAIN CONSTANT AND ACHING AND CENTERED IN LOW BACK. CONTINUES TO BE VERY ACTIVE. PAIN IN BACK HIPS AND RIGHT KNEE PREVENT HER FROM WALKING SHE WOULD LIKE TO. . CURRENT MEDICATIONS TAKING ROPINIROLE HCL 2 MG TABLET 1 TABLET 1 TO 3 HOURS BEFORE BEDTIME ORALLY ONCE A DAY TAKING ASPIRIN 81 MG TABLET 1 TABLET ORALLY ONCE A DAY TAKING LANCETS FREE STYLE ------ ------ - DAILY TAKING LANCET DEVICES - - - SUBCUTANEOUSLY DAILY TAKING [employer] SYSTEM W/DEVICE KIT DIRECTED DAILY TAKING [employer] II TEST STRIPS MINI STRIP DIRECTED IN VITRO DAILY TAKING FENOFIBRATE 160 MG TABLET 1 TABLET WITH A MEAL ORALLY ONCE A DAY TAKING PRADAXA 150 MG CAPSULE 1 CAP(S) ORALLY BID TAKING LISINOPRIL 2.5 MG TABLET DIRECTED ORALLY ONCE A DAY TAKING BISOPROLOL FUMARATE 5 MG TABLET 1/2 TABLET ORALLY ONCE A DAY TAKING GABAPENTIN 600 MG TABLET 1 TABLET ORALLY BEDTIME TAKING METFORMIN HCL 1000 MG TABLET 1 TABLET WITH MEALS ORALLY TWICE A DAY TAKING ATORVASTATIN CALCIUM 10 MG TABLET 1 TABLET ORALLY ONCE A DAY TAKING JARDIANCE 10 MG TABLET TAKE ONE TABLET BY MOUTH EVERY DAY ORALLY DAILY TAKING SERTRALINE HCL 100 MG TABLET 2 TABS ORALLY ONCE A DAY TAKING TRAZODONE HCL 100 MG TABLET 1/2-1 TAB ORALLY BEDTIME TAKING GLIMEPIRIDE 4 MG TABLET 1&1/2 TABLET ORALLY ONCE A DAY TAKING [employer] ULTRA TEST - STRIP USE TO TEST DAILY DIRECTED NOT-TAKING FENOFIBRATE 145 MG TABLET 1 TAB(S) ORALLY DAILY NOT-TAKING INSULIN PEN NEEDLE 32G X 5 MM MISCELLANEOUS 1 SUBCUTANEOUSLY DAILY NOT-TAKING ABILIFY 2 MG TABLET 1 TABLET ORALLY ONCE A DAY MEDICATION LIST REVIEWED AND RECONCILED WITH THE PATIENT PAST MEDICAL HISTORY HYPERTENSION DEPRESSION LEFT MASTECTOMY OSTEOARTHRITIS OF THE HANDS KNEES AND SHOULDERS MENOPAUSAL RESTLESS LEG SYNDROME ELEVATED CHOLESTEROL GERD DEGENERATIVE CERVICAL SPINE SUICIDAL ATTEMPT BY OVERDOSE OF VALIUM 02/10 ONE VITAMIN D GENERALIZED OSTEOARTHRITIS 05/12 HEART DISEASE UNSPECIFIED ESSENTIAL HYPERTENSION OTHER AND UNSPECIFIED HYPERLIPIDEMIA UNSPECIFIED VITAMIN D DEFICIENCY UNSPECIFIED ANEMIA DIARRHEA ATRIAL FIBRILLATION UNSPECIFIED VITAMIN D DEFICIENCY PERSONAL HISTORY OF MALIGNANT NEOPLASM OF BREAST MIGRAINE WITHOUT AURA, WITHOUT MENTION OF INTRACTABLE MIGRAINE WITHOUT MENTION OF STATUS MIGRAINOSUS DIABETES MELLITUS WITHOUT MENTION OF COMPLICATION, TYPE II OR UNSPECIFIED TYPE, NOT STATED UNCONTROLLED MIXED HYPERLIPIDEMIA PSORIASIS RELATED DISEASE NEC GENERALIZED OSTEOARTHROSIS, INVOLVING MULTIPLE SITES PERSONAL HISTORY OF NONCOMPLIANCE WITH MEDICAL TREATMENT, PRESENTING HAZARDS TO HEALTH UMBILICAL HERNIA WITHOUT MENTION OF OBSTRUCTION OR GANGRENE BREAST CANCER SCREENING RESTLESS LEGS SYNDROME OTHER SCREENING MAMMOGRAM NEED FOR PNEUMOCOCCAL VACCINE HX OF TOBACCO USE, PRESENTING HAZARDS TO HEALTH KYPHOSCOLIOSIS AUDITORY HALLUCINATION AUDITORY HALLUCINATION SARAVANAN ALLERGIES LATEX: RASH: ALLERGY DEMEROL: DIZZINES, CONFUSION, LIGHTHEADED: SIDE EFFECTS REVIEW OF SYSTEMS CONSTITUTIONAL: ANY CHANGE IN YOUR MEDICAL CONDITION? NO . CHILLS NO . FEVER NO . INFECTION: DO YOU HAVE NEW INFECTIONS? NO . DO YOU HAVE HISTORY OF MRSA? NO . MUSCULOSKELETAL: ANY NEW PATTERNS OF PAIN OR NUMBNESS? NO . GASTROENTEROLOGY: ANY NEW CHANGE IN BOWEL CONTROL? NO . GENITOURINARY: ANY NEW CHANGE IN BLADDER CONTROL? NO . IS THERE A CHANCE YOU COULD BE ? NO . HEMATOLOGY/LYMPH: DO YOU TAKE ANY BLOOD THINNERS? (FOR EXAMPLE- COUMADIN, PLAVIX, AGGRENOX, PLATEL, PRADAXA, OR XARELTO) YES - PRADAXA . WHEN WAS YOUR LAST DOSE? DATE: TIME: . NEUROLOGY: HAVE YOU FALLEN IN THE PAST 6 MONTHS? YES , NOT SINCE WAS HERE LAST . ANY NEW EXTREMITY NUMBNESS OR WEAKNESS? NO . CARDIOLOGY: DO YOU HAVE A PACEMAKER OR DEFIBRILLATOR? NO . RESPIRATORY: HAVE YOU BEEN SICK IN THE PAST WEEK? NO . FEVER NO . FLU LIKE SYMPTOMS? NO . COUGH NO . INTEGUMENTARY: DO YOU HAVE ANY RASHES OR OPEN SORES? NO . ALLERGIC/IMMUNO: ARE YOU ALLERGIC TO SHELLFISH OR IV DYE? NO . ANY NEW ALLERGIES? NO . PSYCHIATRIC: DO YOU HAVE THOUGHTS OF HURTING YOURSELF OR SOMEONE ELSE? NO . ARE YOU ABUSED, NEGLECTED, OR IN AN UNSAFE ENVIRONMENT? NO . ENDOCRINOLOGY: ARE YOU DIABETIC? YES . OTHER: DO YOU NEED ANY PRESCRIPTIONS? NO . IF YES, PLEASE LIST: ____ . ANY NEW PROBLEMS WITH YOUR MEDICATIONS? NO . WHEN DID YOU LAST EAT? ____ . WHEN DID YOU LAST DRINK? ____ . WHAT DID YOU LAST DRINK? ____ . NAME OF PERSON DRIVING YOU HOME? ____ . DO YOU HAVE ANY OTHER QUESTIONS OR CONCERNS NO . REVIEWED BY: PROVIDER: ALBERTO BRUNNER . VITAL SIGNS WT 208.2 LBS, HT 5', BMI 40.66 INDEX, BP 138/67 MM HG, HR 67 /MIN, RR 16 /MIN, TEMP 96.2 F, OXYGEN SAT % 94%, NA INITIALS TL 1107, REVIEWED BY: NL. EXAMINATION GENERAL EXAMINATION: PSYCHALERT , ORIENTED X 3 , APPROPRIATE MOOD AND AFFECT . LUNGS:CLEAR TO AUSCULTATION BILATERALLY, NO WHEEZES, RALES OR RHONCHI. HEART:HEART RATE REGULAR. MUSCULOSKELETAL:POINT TENDERNESS OVER LEFT LSA AND LEFT SIJ. , TRIGGER POINTS AND TIGHT FIBROUS BANDS IDENTIFIED OVER LUMBAR PARAVEREBRAL MUSCLES AND ACROSS THE SACRUM. DECREASE IN ROM WITH FLEXION, EXTENSION AND ROTATION. GAIT NONANTALGIC. ASSESSMENTS MYALGIA - M79.1 (PRIMARY) LOW BACK PAIN - M54.5 SPONDYLOSIS WITHOUT MYELOPATHY OR RADICULOPATHY, LUMBAR REGION - M47.816 SPONDYLOSIS WITHOUT MYELOPATHY OR RADICULOPATHY, LUMBOSACRAL REGION - M47.817 TREATMENT MYALGIA INJECTION FACET JOINT/NERVE LUMBAR/SACRALALBERTO BAKER 11/03/2016 11:56:18 AM > BILATERAL DIAGNOSTIC L4-5, L5-S1 FACET BLOCK ON PRADAXA NOTES: PATIENT EDUCATION WAS PRINTED,FACET JOINT INJECTION: YOUR EXPERIENCE MATERIAL WAS PRINTED. PREVENTIVE MEDICINE DISCUSSED HOLDING PRADAXA AND BLOOD SUGAR MEDS. PREPROCEDURE CARE EXPLAINED AND PT STATED UNDERSTANDING OF ALL. PROCEDURE CODES FA211 ESTABILISHED PATIENT [facility] CHARGE DISPOSITION & COMMUNICATION FOLLOW UP NEED OK DR DR VIRAMONTES TO HOLD PRADAXA FOR 5 DAYS, THEN SCHED FOR BILAT L4-5, L5-S1 DIAGNOSTIC FACET BLOCK (REASON: LOW BACK PAIN) ELECTRONICALLY SIGNED BY NAYELY PEÑA ON 11/19/2016 AT 03:32 PM EDT DISCLAIMER : THIS IS A VISIT SUMMARY EXTRACTED FROM THE [employer] CHART. IT IS NOT A COPY OF THE [employer] PROGRESS NOTE. MTDD
== END ==
LOC: M PAIN 11:00
PROVIDERS: ATTEND Nurse Practitioner Family
DX: M79.1 Myalgia (principal); M54.5 Low back pain; M47.816 Spondylosis without myelopathy or radiculopathy, lumbar region; M47.817 Spondylosis without myelopathy or radiculopathy, lumbosacral region; Z79.82 Long term (current) use of aspirin; Z79.84 Long term (current) use of oral hypoglycemic drugs; Z91.040 Latex allergy status; Z88.5 Allergy status to narcotic agent

== ENCOUNTER → 2016-12-08 | Outpatient (CLI) | payer OTHER ==
[~2016-12-08] MED LIST changes: +BUPIVACAINE HCL 0.25% 30 ML VIAL As Ordered ONE; +ISOVUE-M 300 61% 15ML VIAL (Q9967) As Ordered ONE; +LIDOCAINE 1% SDV INJ 30 ML VIAL As Ordered ONE
--- NOTE | 2016-12-08 15:27 | REP ---
Partial lumbar spine series: Two views . History: Injection procedure for pain. 32 seconds of fluoroscopy time is reported. Findings: A sequence of three fluoroscopically obtained last image hold procedural spot radiographs of the lumbar spine document needle position and contrast injection associated with injection procedure. Signed by Manuel Garcia MD 12/08/2016 03:18 P
--- NOTE | 2016-12-17 23:41 | ECWPNPC ---
PATIENT NAME: INGA MARTINEZ : 1955 GENDER: FEMALE VISIT DATE: 12/08/2016 DISCHARGE DATE: 12/08/16 1517 VISIT LOCKED DATE TIME: PHYSICIAN: BOB CHARLES PHYSICIAN PAGER NO: [phone] RESOURCE: BOB CHARLES REASON FOR APPOINTMENT 1. DIAGNOSTIC FACET BLOCK HISTORY OF PRESENT ILLNESS HISTORY OF PRESENT ILLNESS: PAIN THE PATIENT DESCRIBES THE PAIN... FALL RISK SCREENING: SCREENING :NO FALLS IN THE PAST YEAR CURRENT MEDICATIONS TAKING ASPIRIN 81 MG TABLET 1 TABLET ORALLY ONCE A DAY, NOTES: 12-08-16699 TAKING FENOFIBRATE 145 MG TABLET 1 TABLET WITH A MEAL ORALLY ONCE A DAY, NOTES: 12-07-16 6PM TAKING BISOPROLOL FUMARATE 5 MG TABLET 1/2 TABLET ORALLY ONCE A DAY, NOTES: 12-08-16699 TAKING GABAPENTIN 600 MG TABLET 1 TABLET ORALLY BEDTIME, NOTES: 12-07-16 6PM TAKING TRAZODONE HCL 100 MG TABLET 1/2-1 TAB ORALLY BEDTIME, NOTES: 12-07-162199 TAKING SERTRALINE HCL 100 MG TABLET 2 TABS ORALLY ONCE A DAY, NOTES: 12-08-16699 TAKING ATORVASTATIN CALCIUM 10 MG TABLET 1 TABLET ORALLY ONCE A DAY, NOTES: 12-08-16699 TAKING JARDIANCE 10 MG TABLET TAKE ONE TABLET BY MOUTH EVERY DAY ORALLY DAILY, NOTES: 12-08-16699 TAKING PRADAXA 150 MG CAPSULE 1 CAP(S) ORALLY BID, NOTES: 12-02-16 6PM TAKING LANCETS FREE STYLE ------ ------ - DAILY TAKING LANCET DEVICES - - - SUBCUTANEOUSLY DAILY TAKING [employer] ULTRA SYSTEM W/DEVICE KIT DIRECTED DAILY TAKING [employer] ULTRA II TEST STRIPS MINI STRIP DIRECTED IN VITRO DAILY TAKING [employer] ULTRA TEST - STRIP USE TO TEST DAILY DIRECTED TAKING METFORMIN HCL 1000 MG TABLET 1 TABLET WITH MEALS ORALLY TWICE A DAY, NOTES: 12-08-16699 TAKING BREAST PROSTHESIS (LEFT) LEFT V10.3 1 EXTERNALLY TAKING ROPINIROLE HCL 2 MG TABLET 1 TABLET ORALLY BID, NOTES: 12-07-162099 TAKING LISINOPRIL 2.5 MG TABLET 1 TAB ORALLY ONCE A DAY, NOTES: 12-08-16699 TAKING GLIMEPIRIDE 4 MG TABLET 1&1/2 TABLET ORALLY ONCE A DAY, NOTES: 12-08-16 0700 NOT-TAKING INSULIN PEN NEEDLE 32G X 5 MM MISCELLANEOUS 1 SUBCUTANEOUSLY DAILY NOT-TAKING ABILIFY 2 MG TABLET 1 TABLET ORALLY ONCE A DAY DISCONTINUED CIMETIDINE 400 MG TABLET 1 TABLET AT BEDTIME ORALLY ONCE A DAY DISCONTINUED FENOFIBRATE 145 MG TABLET 1 TAB(S) ORALLY DAILY MEDICATION LIST REVIEWED AND RECONCILED WITH THE PATIENT PAST MEDICAL HISTORY HYPERTENSION DEPRESSION LEFT MASTECTOMY OSTEOARTHRITIS OF THE HANDS KNEES AND SHOULDERS MENOPAUSAL RESTLESS LEG SYNDROME ELEVATED CHOLESTEROL GERD DEGENERATIVE CERVICAL SPINE SUICIDAL ATTEMPT BY OVERDOSE OF VALIUM 02/10 ONE VITAMIN D GENERALIZED OSTEOARTHRITIS 05/12 HEART DISEASE UNSPECIFIED ESSENTIAL HYPERTENSION OTHER AND UNSPECIFIED HYPERLIPIDEMIA UNSPECIFIED VITAMIN D DEFICIENCY UNSPECIFIED ANEMIA DIARRHEA ATRIAL FIBRILLATION UNSPECIFIED VITAMIN D DEFICIENCY PERSONAL HISTORY OF MALIGNANT NEOPLASM OF BREAST MIGRAINE WITHOUT AURA, WITHOUT MENTION OF INTRACTABLE MIGRAINE WITHOUT MENTION OF STATUS MIGRAINOSUS DIABETES MELLITUS WITHOUT MENTION OF COMPLICATION, TYPE II OR UNSPECIFIED TYPE, NOT STATED UNCONTROLLED MIXED HYPERLIPIDEMIA PSORIASIS RELATED DISEASE NEC GENERALIZED OSTEOARTHROSIS, INVOLVING MULTIPLE SITES PERSONAL HISTORY OF NONCOMPLIANCE WITH MEDICAL TREATMENT, PRESENTING HAZARDS TO HEALTH UMBILICAL HERNIA WITHOUT MENTION OF OBSTRUCTION OR GANGRENE BREAST CANCER SCREENING RESTLESS LEGS SYNDROME OTHER SCREENING MAMMOGRAM NEED FOR PNEUMOCOCCAL VACCINE HX OF TOBACCO USE, PRESENTING HAZARDS TO HEALTH KYPHOSCOLIOSIS AUDITORY HALLUCINATION AUDITORY HALLUCINATION SARAVANAN ALLERGIES LATEX: RASH: ALLERGY DEMEROL: DIZZINES, CONFUSION, LIGHTHEADED: SIDE EFFECTS REVIEW OF SYSTEMS REVIEWED BY: PROVIDER: . CONSTITUTIONAL: ANY CHANGE IN YOUR MEDICAL CONDITION? YES, CONCERNED ABOUT RECENT SWELLING IN LEFT FOOT. . CHILLS NO . FEVER NO . INFECTION: DO YOU HAVE NEW INFECTIONS? NO . DO YOU HAVE HISTORY OF MRSA? NO . MUSCULOSKELETAL: ANY NEW PATTERNS OF PAIN OR NUMBNESS? YES, LEFT LEG GETS NUMB. . GASTROENTEROLOGY: ANY NEW CHANGE IN BOWEL CONTROL? NO . GENITOURINARY: ANY NEW CHANGE IN BLADDER CONTROL? NO . IS THERE A CHANCE YOU COULD BE ? NO . HEMATOLOGY/LYMPH: DO YOU TAKE ANY BLOOD THINNERS? (FOR EXAMPLE- COUMADIN, PLAVIX, AGGRENOX, PLATEL, PRADAXA, OR XARELTO) YES, PRADAXA . WHEN WAS YOUR LAST DOSE? DATE: TIME: 12-02-16 6PM . NEUROLOGY: HAVE YOU FALLEN IN THE PAST 6 MONTHS? YES . ANY NEW EXTREMITY NUMBNESS OR WEAKNESS? NO . CARDIOLOGY: DO YOU HAVE A PACEMAKER OR DEFIBRILLATOR? NO . RESPIRATORY: HAVE YOU BEEN SICK IN THE PAST WEEK? NO . FEVER NO . FLU LIKE SYMPTOMS? NO . COUGH NO . INTEGUMENTARY: DO YOU HAVE ANY RASHES OR OPEN SORES? YES, LEFT KNEE BUT IS HEALING AND HAS A SCAB. . ALLERGIC/IMMUNO: ARE YOU ALLERGIC TO SHELLFISH OR IV DYE? NO . ANY NEW ALLERGIES? NO . PSYCHIATRIC: DO YOU HAVE THOUGHTS OF HURTING YOURSELF OR SOMEONE ELSE? NO . ARE YOU ABUSED, NEGLECTED, OR IN AN UNSAFE ENVIRONMENT? NO . ENDOCRINOLOGY: ARE YOU DIABETIC? YES . OTHER: DO YOU NEED ANY PRESCRIPTIONS? NO . IF YES, PLEASE LIST: ____ . ANY NEW PROBLEMS WITH YOUR MEDICATIONS? NO . WHEN DID YOU LAST EAT? 12-07-16 PM . WHEN DID YOU LAST DRINK? 12-08-16 0700 . WHAT DID YOU LAST DRINK? COFFEE WITH CREAM . NAME OF PERSON DRIVING YOU HOME? SIDNA . DO YOU HAVE ANY OTHER QUESTIONS OR CONCERNS NO . VITAL SIGNS WT 206 LBS, HT 60", BMI 40.23 INDEX, BP 135/69 MM HG, HR 102 /MIN, RR 18 /MIN, TEMP 96.2 F, OXYGEN SAT % 93, NA INITIALS AW 1157, REVIEWED BY: CM. ASSESSMENTS SPONDYLOSIS WITHOUT MYELOPATHY OR RADICULOPATHY, LUMBAR REGION - M47.816 (PRIMARY) SPONDYLOSIS WITHOUT MYELOPATHY OR RADICULOPATHY, LUMBOSACRAL REGION - M47.817 PROCEDURES PN LUMBAR FACET BLOCK DIAGNOSTIC PRE PROCEDURE DIAGNOSIS LUMBAR SPONDYLOSIS, LUMBOSACRAL SPONDYLOSIS POST PROCEDURE DIAGNOSIS LUMBAR SPONDYLOSIS, LUMBOSACRAL SPONDYLOSIS PROCEDURE BILATERAL L4-L5 AND BILATERAL L5-S1 FACET BLOCK DIAGNOSTIC NUMBER [address] 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 I EVALUATED THE PATIENT AND REVIEWED THE CHART. I WENT OVER THE RISKS, ALTERNATIVES, AND BENEFITS ASSOCIATED WITH THIS PROCEDURE. THE PATIENT WOULD LIKE TO PROCEED AND GAVE CONSENT TO PERFORM THE PROCEDURE. AGREED WITH THE PATIENT WE ARE DOING THIS PROCEDURE TO DETERMINE IF THE PATIENT IS A CANDIDATE FOR A RADIOFREQUENCY ABLATION OF THE FACETS JOINTS. THE PATIENT DENIES UNEXPLAINABLE WEIGHT LOSS, FEVER, CHILLS, OR NEW CHANGES IN URINARY OR BOWEL CONTROL DESCRIPTION OF PROCEDURE THE PATIENT WAS BROUGHT TO THE PROCEDURE ROOM AND PLACED IN THE PRONE POSITION. THE LUMBOSACRAL AREA WAS CLEANED WITH CHLORAPREP SOLUTION AND DRAPED ASEPTICALLY. THE PROCEDURE WAS DONE UNDER STERILE CONDITIONS. I CHECKED LATERALITY AND THE LEVEL WHERE THE PROCEDURE WAS GOING TO BE PERFORMED WITH THE PATIENT AND THE SUPPORTING STAFF AT THE MOMENT OF THE TIME OUT IN THE PROCEDURE ROOM. UNDER FLUOROSCOPIC GUIDANCE, TARGETS WERE SELECTED AT THE INTERSECTION OF THE RIGHT AND LEFT TRANSVERSE PROCESS OF L4, L5 AND ALA OF S1 WITH ITS RESPECTIVE SUPERIOR ARTICULAR PROCESS. LIDOCAINE WAS USED TO NUMB THE SKIN AND THE SUBCUTANEOUS TISSUE BELOW IT. SPINAL NEEDLE, 22-GAUGE WAS ADVANCED UNDER FLUOROSCOPIC GUIDANCE AND FOLLOWING PATIENT FEEDBACK UNTIL THE TARGETS WERE REACHED. POSITION OF THE NEEDLES WAS VERIFIED WITH AP AND LATERAL VIEWS. AFTER PROPER POSITION OF THE NEEDLES WAS ACHIEVED, ISOVUE-M DYE 30% 0.1 ML WAS INJECTED AT EACH SITE SHOWING ADEQUATE SPREAD OF THE DYE. THEN A SOLUTION OF 0.4 ML OF BUPIVACAINE 0.25% WAS INJECTED AT EACH SITE. THERE WAS NO EVIDENCE OF BLOOD, PARESTHESIA OR CEREBROSPINAL FLUID DURING THE PROCEDURE. THE PATIENT WAS SENT TO THE RECOVERY ROOM. THE PATIENT WAS MOVING THE EXTREMITIES AND DOING WELL. THERE WAS NO COMPLICATION DURING THE PROCEDURE. FLUOROSCOPY TIME WAS 32 SECONDS POST PROCEDURE NOTE THE PATIENT WILL DOCUMENT HIS PAIN LEVEL AND RESPONSE TO THIS PROCEDURE EVERY 30 MINUTES. THE PATIENT WILL BE SEEN IN A FOLLOW UP IN THE NEXT FEW WEEKS. FURTHER DETERMINATION FOR HIS CASE WILL BE DONE AT THE NEXT VISIT. INSTRUCTIONS WERE GIVEN, QUESTIONS WERE ANSWERED, AND THE PATIENT EXPRESSED UNDERSTANDING AND AGREED WITH THE PLAN. I, JULI LOBATO, DOCUMENTED THE ABOVE INFORMATION ACTING A SCRIBE FOR DR. CHARLES. I, DR. CHARLES, HAVE REVIEWED THE ABOVE DOCUMENT, SCRIBED BY JULI LOBATO, AND I VERIFY THAT IT IS ACCURATE DIAGNOSTIC IMAGING [facility] FACET BLOCK (PAIN)[id number] PROCEDURE CODES 54797 INJ PARAVERT F JNT L/S 1 LEV 57093 INJ PARAVERT F JNT L/S 2 LEV 6045F RADXPS IN END [id number] PXD DISPOSITION & COMMUNICATION FOLLOW UP 3 WEEKS ELECTRONICALLY SIGNED BY BOB CHARLES MD ON 12/17/2016 AT 10:05 PM EDT DISCLAIMER : THIS IS A VISIT SUMMARY EXTRACTED FROM THE [employer] CHART. IT IS NOT A COPY OF THE [employer] PROGRESS NOTE. MTDD
== END ==
LOC: M PAIN 11:40
PROVIDERS: ATTEND Anesthesiology
DX: M47.816 Spondylosis without myelopathy or radiculopathy, lumbar region (principal); G89.29 Other chronic pain; M47.817 Spondylosis without myelopathy or radiculopathy, lumbosacral region; Z79.82 Long term (current) use of aspirin; Z79.84 Long term (current) use of oral hypoglycemic drugs; Z79.891 Long term (current) use of opiate analgesic; Z79.899 Other long term (current) drug therapy; Z91.040 Latex allergy status; Z88.5 Allergy status to narcotic agent; I10 Essential (primary) hypertension; I48.2 Chronic atrial fibrillation; Z85.3 Personal history of malignant neoplasm of breast; E11.9 Type 2 diabetes mellitus without complications

== ENCOUNTER → 2017-02-07 | Outpatient (REF) | payer OTHER ==
[~2017-02-07] MED LIST changes: -BUPIVACAINE HCL 0.25% 30 ML VIAL As Ordered ONE; -ISOVUE-M 300 61% 15ML VIAL (Q9967) As Ordered ONE; -LIDOCAINE 1% SDV INJ 30 ML VIAL As Ordered ONE
[2017-02-08 13:50] LABS: ANION GAP 11 MEQ/L (8-16); BLOOD UREA NITROGEN 11 MG/DL (7-18); CALCIUM LEVEL 9.1 MG/DL (8.8-10.2); CARBON DIOXIDE LEVEL 26 MEQ/L (21-32); CHLORIDE LEVEL 110 MEQ/L (98-107); CREATININE FOR GFR 0.82 MG/DL (0.55-1.02); GLOMERULAR FILTRATION RATE > 60.0 (>45); GLUCOSE, FASTING 94 MG/DL (80-110); SODIUM LEVEL 147 MEQ/L (136-145)
== END ==
LOC: M SFHCCLAY 15:12
PROVIDERS: ATTEND Family Medicine
DX: E11.9 Type 2 diabetes mellitus without complications (principal)

== ENCOUNTER → 2017-08-28 | Outpatient (REF) | payer OTHER ==
[2017-08-28 16:54] LABS: ANION GAP 7 MEQ/L (8-16); BLOOD UREA NITROGEN 13 MG/DL (7-18); CALCIUM LEVEL 9.2 MG/DL (8.8-10.2); CARBON DIOXIDE LEVEL 28 MEQ/L (21-32); CHLORIDE LEVEL 108 MEQ/L (98-107); CREATININE FOR GFR 0.85 MG/DL (0.55-1.30); GLOMERULAR FILTRATION RATE > 60.0 (>45); GLUCOSE, FASTING 70 MG/DL (70-100); POTASSIUM SERUM 4.4 MEQ/L (3.5-5.1); SODIUM LEVEL 143 MEQ/L (136-145)
[2017-08-28 17:50] LABS: ESTIMATED AVERAGE GLUCOSE 160 MG/DL (60-110); HEMOGLOBIN A1c 7.2 %
== END ==
LOC: M SFHCCLAY 11:11
DX: I10 Essential (primary) hypertension (principal); E11.9 Type 2 diabetes mellitus without complications
CPT/HCPCS: 83036

== ENCOUNTER → 2017-08-28 | Outpatient (CLI) | payer OTHER | LOC: M CLY 11:46 | DX: M18.11 Unilateral primary osteoarthritis of first carpometacarpal joint, right hand (principal) | CPT/HCPCS: 73130 ==

== ENCOUNTER → 2017-12-21 | Outpatient (REF) | payer OTHER ==
[2017-12-21 16:55] LABS: ESTIMATED AVERAGE GLUCOSE 160 MG/DL (60-110); HEMOGLOBIN A1c 7.2 %
== END ==
LOC: M SFHCCLAY 10:33
DX: E11.9 Type 2 diabetes mellitus without complications (principal)
CPT/HCPCS: 83036

== ENCOUNTER → 2017-12-24 | Outpatient (CLI) | payer OTHER | LOC: M RAD 11:05 | DX: Z12.31 Encounter for screening mammogram for malignant neoplasm of breast (principal) | CPT/HCPCS: 77065 ==

== ENCOUNTER → 2018-03-13 | Outpatient (REF) | payer OTHER | LOC: M SFHCCLAY 14:16 | DX: Z12.4 Encounter for screening for malignant neoplasm of cervix (principal) ==

== ENCOUNTER → 2018-06-13 | Outpatient (REF) | payer OTHER ==
[2018-06-14 11:20] LABS: ALT/SGPT 31 U/L (12-78); BLOOD UREA NITROGEN 12 MG/DL (7-18); CARBON DIOXIDE LEVEL 27 MEQ/L (21-32); CHLORIDE LEVEL 105 MEQ/L (98-107); CREATININE FOR GFR 0.84 MG/DL (0.55-1.30); GLOMERULAR FILTRATION RATE > 60.0 (>45); GLUCOSE, FASTING 137 MG/DL (70-100); POTASSIUM SERUM 5.2 MEQ/L (3.5-5.1); SODIUM LEVEL 138 MEQ/L (136-145)
[2018-06-14 11:56] LABS: HEMOGLOBIN A1c 8.3 %
== END ==
LOC: M SFHCCLAY 14:19
PROVIDERS: ATTEND Family Medicine
DX: E11.9 Type 2 diabetes mellitus without complications (principal)

== ENCOUNTER 2018-08-29 10:49 | Outpatient (RCR) | payer OTHER | END 2018-09-01 | LOC: M PT 10:49 | PROVIDERS: ATTEND Orthopaedic Surgery | DX: M76.822 Posterior tibial tendinitis, left leg (principal); M21.42 Flat foot [pes planus] (acquired), left foot ==

== ENCOUNTER 2018-09-05 12:06 | Outpatient (RCR) | payer OTHER | END 2018-10-01 | LOC: M PT 12:06 | PROVIDERS: ATTEND Orthopaedic Surgery | DX: M65.272 Calcific tendinitis, left ankle and foot (principal) ==

== ENCOUNTER → 2018-09-24 | Outpatient (REF) | payer OTHER ==
[2018-09-25 12:29] LABS: BLOOD UREA NITROGEN 17 MG/DL (7-18); CALCIUM LEVEL 8.6 MG/DL (8.8-10.2); CARBON DIOXIDE LEVEL 28 MEQ/L (21-32); CHLORIDE LEVEL 108 MEQ/L (98-107); CREATININE FOR GFR 0.85 MG/DL (0.55-1.30); GLOMERULAR FILTRATION RATE > 60.0 (>45); GLUCOSE, FASTING 76 MG/DL (70-100); POTASSIUM SERUM 4.7 MEQ/L (3.5-5.1); SODIUM LEVEL 143 MEQ/L (136-145)
[2018-09-25 13:28] LABS: HEMOGLOBIN A1c 8.5 %
[2018-09-26 08:49] LABS: MALB URINE SIEMENS 43.8 MG/L; MAU/CREAT RATIO 38.7 MCG/MG (0.0-30.0)
== END ==
LOC: M SFHCCLAY 13:56
PROVIDERS: ATTEND Family Medicine
DX: E11.9 Type 2 diabetes mellitus without complications (principal)

== ENCOUNTER → 2019-01-30 | Outpatient (REF) | payer OTHER ==
[2019-01-31 12:27] LABS: HEMOGLOBIN A1c 10.5 %
[2019-01-31 12:28] LABS: CHOLESTEROL RISK RATIO 3.625 (<5)
[2019-01-31 12:44] LABS: CREATININE, URINE 43.4 MG/DL; MALB URINE SIEMENS 94.2 MG/L
== END ==
LOC: M SFHCCLAY 14:38
PROVIDERS: ATTEND Family Medicine
DX: E11.65 Type 2 diabetes mellitus with hyperglycemia (principal); E78.5 Hyperlipidemia, unspecified

== ENCOUNTER → 2019-06-25 | Outpatient (REF) | payer OTHER ==
[2019-06-26 12:44] LABS: BLOOD UREA NITROGEN 8 MG/DL (7-18); CALCIUM LEVEL 9.5 MG/DL (8.8-10.2); CARBON DIOXIDE LEVEL 30 MEQ/L (21-32); CHLORIDE LEVEL 97 MEQ/L (98-107); CREATININE FOR GFR 0.81 MG/DL (0.55-1.30); GLOMERULAR FILTRATION RATE > 60.0 (>45); GLUCOSE, FASTING 178 MG/DL (70-100); POTASSIUM SERUM 3.8 MEQ/L (3.5-5.1); SODIUM LEVEL 137 MEQ/L (136-145)
[2019-06-26 13:09] LABS: HEMOGLOBIN A1c 11.5 %
== END ==
LOC: M SFHCCLAY 14:39
PROVIDERS: ATTEND Family Medicine
DX: E11.9 Type 2 diabetes mellitus without complications (principal); I10 Essential (primary) hypertension

== ENCOUNTER → 2019-10-22 | Outpatient (REF) | payer OTHER ==
[2019-10-23 12:15] LABS: BLOOD UREA NITROGEN 14 MG/DL (7-18); CALCIUM LEVEL 9.3 MG/DL (8.8-10.2); CARBON DIOXIDE LEVEL 30 MEQ/L (21-32); CHLORIDE LEVEL 103 MEQ/L (98-107); CREATININE FOR GFR 0.71 MG/DL (0.55-1.30); GLOMERULAR FILTRATION RATE > 60.0 (>45); GLUCOSE, FASTING 71 MG/DL (70-100); POTASSIUM SERUM 4.8 MEQ/L (3.5-5.1); SODIUM LEVEL 140 MEQ/L (136-145)
[2019-10-23 13:33] LABS: HEMOGLOBIN A1c 9.4 %
== END ==
LOC: M SFHCCLAY 14:05
PROVIDERS: ATTEND Family Medicine
DX: E11.9 Type 2 diabetes mellitus without complications (principal)

== ENCOUNTER 2020-03-29 02:59 | Emergency (ER) | payer MEDICARE, OTHER ==
[~2020-03-29] VITALS: Ht 152.4 cm; Wt 87.8 kg
[2020-03-29] MEDS ORDERED: METF10004 PO (03:09)
[2020-03-29] MEDS ORDERED: PRAD150C6 PO (03:09)
[2020-03-29] MEDS ORDERED: BASA100I SC (03:09)
[2020-03-29] MEDS ORDERED: GLIM4TAB5 PO (03:09)
[2020-03-29] MEDS ORDERED: NESI25TA PO (03:09)
[2020-03-29 03:38] LABS: BASO # 0.1 10^3/uL (0.0-0.2); BASO % 0.6 % (0.0-1.0); EOS # 0.6 10^3/uL (0.0-0.5); EOS % 3.9 % (0.0-3.0); HEMATOCRIT 43.3 % (36.0-47.0); HEMOGLOBIN 12.2 g/dl (12.0-15.5); LYMPH # 3.6 10^3/uL (1.5-5.0); LYMPH % 25.3 % (24.0-44.0); MEAN CORPUSCULAR HEMOGLOBIN 21.7 pg (27.0-33.0); MEAN CORPUSCULAR HGB CONC 28.2 g/dl (32.0-36.5); MONO # 1.1 10^3/uL (0.0-0.8); MONO % 7.7 % (0.0-5.0); NEUTROPHILS # 8.9 10^3/uL (1.5-8.5); NEUTROPHILS % 62.2 % (36.0-66.0); PLATELET COUNT, AUTOMATED 290 10^3/uL (150-450); RED BLOOD COUNT 5.62 10^6/uL (4.00-5.40); WHITE BLOOD COUNT 14.3 10^3/uL (4.0-10.0)
--- NOTE | 2020-03-29 03:54 | REPVR ---
PROCEDURE INFORMATION: Exam: XR Chest, 1 View Exam date and time: 03/29/2020 3:38 AM Age: 65 years old Clinical indication: Chest pain; Type not specified TECHNIQUE: Imaging protocol: XR of the chest Views: 1 view. COMPARISON: No relevant prior studies available. FINDINGS: Limitations: Limited by patient's body habitus. Lungs: Unremarkable. No consolidation. Pleural space: Unremarkable. No pleural effusion. No pneumothorax. Heart/Mediastinum: Unremarkable. No cardiomegaly. Bones/joints: Unremarkable. IMPRESSION: No acute findings. Electronically signed by: Anoop Bustillo On 03/29/2020 03:54:43 AM
[2020-03-29] MEDS ORDERED: ASPIRIN 81 MG CHEW TABLET As Ordered ONE (03:56)
[2020-03-29] MEDS ORDERED: ASPIRIN 81 MG CHEW TABLET PO ONE (04:00)
[2020-03-29] MEDS: METOPROLOL 5 MG/5 ML VIAL IV SCH ×2 (04:10→04:18)
[2020-03-29 04:26] LABS: BLOOD UREA NITROGEN 18 MG/DL (7-18); CALCIUM LEVEL 8.2 MG/DL (8.8-10.2); CARBON DIOXIDE LEVEL 26 MEQ/L (21-32); CHLORIDE LEVEL 103 MEQ/L (98-107); CK-MB VALUE MASS 2.6 NG/ML (<3.6); CPK CREATINE PHOSPHOKINASE 122 U/L (26-192); CREATININE FOR GFR 1.07 MG/DL (0.55-1.30); GLOMERULAR FILTRATION RATE 54.8 (>45); GLUCOSE, FASTING 196 MG/DL (70-100); MB/CK RELATIVE INDEX 2.13 (< OR =4); POTASSIUM SERUM 3.9 MEQ/L (3.5-5.1); SODIUM LEVEL 138 MEQ/L (136-145); TROPONIN I < 0.02 NG/ML (< 0.10)
[2020-03-29] MEDS ORDERED: METOPROLOL TART 25 MG TABLET PO ONE (04:30)
[2020-03-29 04:35] VITALS: BP 115/59
[2020-03-29 04:36] VITALS: BP 130/61
--- NOTE | 2020-03-30 09:14 | ECGEPIP ---
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
== END 2020-03-29 04:41 | disposition left against medical advice (07) ==
LOC: M ED 02:59
DX: I48.91 Unspecified atrial fibrillation (principal); I25.10 Atherosclerotic heart disease of native coronary artery without angina pectoris; E11.9 Type 2 diabetes mellitus without complications; I10 Essential (primary) hypertension; F17.200 Nicotine dependence, unspecified, uncomplicated; Z79.899 Other long term (current) drug therapy; Z79.4 Long term (current) use of insulin; Z83.3 Family history of diabetes mellitus; Z82.69 Family history of other diseases of the musculoskeletal system and connective tissue

== ENCOUNTER → 2020-04-07 | Outpatient (CLI) | payer MEDICARE, OTHER ==
[~2020-04-07] MED LIST changes: +ATOR1TAB19 PO; +BASA100I SC; +BISO5TAB14 PO; +GABA600T4 PO; +GLIM4TAB5 PO; +METF10004 PO; +NESI25TA PO; +OMEP40CA97 PO; +PRAD150C6 PO; +ROPI2TAB3 PO; +SUCR1TA PO
[2020-04-07 19:14] LABS: HEMOGLOBIN A1c 8.8 %
[2020-04-07 21:26] LABS: BLOOD UREA NITROGEN 21 MG/DL (7-18); CALCIUM LEVEL 9.5 MG/DL (8.8-10.2); CARBON DIOXIDE LEVEL 27 MEQ/L (21-32); CHLORIDE LEVEL 100 MEQ/L (98-107); CREATININE FOR GFR 0.86 MG/DL (0.55-1.30); GLOMERULAR FILTRATION RATE > 60.0 (>45); GLUCOSE, FASTING 154 MG/DL (70-100); POTASSIUM SERUM 4.1 MEQ/L (3.5-5.1); SODIUM LEVEL 136 MEQ/L (136-145)
== END ==
LOC: M LAB 14:02
PROVIDERS: ATTEND Family Medicine
DX: I10 Essential (primary) hypertension (principal); Z79.899 Other long term (current) drug therapy

== ENCOUNTER 2020-04-14 05:28 | Emergency (ER) | payer MEDICARE, OTHER ==
[~2020-04-14] VITALS: Ht 152.4 cm; Wt 77.5 kg
[~2020-04-14 05:28] MED LIST changes: -ATOR1TAB19 PO; -BISO5TAB14 PO; -GABA600T4 PO; -OMEP40CA97 PO; -ROPI2TAB3 PO; -SUCR1TA PO
[2020-04-14 05:58] LABS: BASO # 0.1 10^3/uL (0.0-0.2); BASO % 0.7 % (0.0-1.0); EOS # 0.5 10^3/uL (0.0-0.5); EOS % 3.3 % (0.0-3.0); HEMATOCRIT 40.2 % (36.0-47.0); HEMOGLOBIN 11.8 g/dl (12.0-15.5); LYMPH # 3.3 10^3/uL (1.5-5.0); LYMPH % 24.3 % (24.0-44.0); MEAN CORPUSCULAR HEMOGLOBIN 22.2 pg (27.0-33.0); MEAN CORPUSCULAR HGB CONC 29.4 g/dl (32.0-36.5); MEAN CORPUSCULAR VOLUME 75.7 fl (80.0-96.0); MONO # 1.1 10^3/uL (0.0-0.8); NEUTROPHILS # 8.6 10^3/uL (1.5-8.5); NEUTROPHILS % 63.3 % (36.0-66.0); PLATELET COUNT, AUTOMATED 286 10^3/uL (150-450); RED BLOOD COUNT 5.31 10^6/uL (4.00-5.40); WHITE BLOOD COUNT 13.5 10^3/uL (4.0-10.0)
[2020-04-14] MEDS ORDERED: ATOR1TAB19 PO (06:09)
[2020-04-14] MEDS ORDERED: BISO5TAB14 PO (06:09)
[2020-04-14] MEDS ORDERED: GABA600T4 PO (06:09)
[2020-04-14] MEDS ORDERED: ROPI2TAB3 PO (06:09)
[2020-04-14 06:10] LABS: INR 1.14; PROTHROMBIN TIME 14.9 SECONDS (12.5-14.3)
[2020-04-14 06:58] LABS: ALBUMIN 3.1 GM/DL (3.2-5.2); ALT/SGPT 14 U/L (12-78); BILIRUBIN,DIRECT < 0.1 MG/DL (0.0-0.2); BILIRUBIN,TOTAL 0.4 MG/DL (0.2-1.0); CK-MB VALUE MASS 2.2 NG/ML (<3.6); CPK CREATINE PHOSPHOKINASE 198 U/L (26-192); LIPASE 77 U/L (73-393); MB/CK RELATIVE INDEX 1.11 (< OR =4); TOTAL PROTEIN 6.7 GM/DL (6.4-8.2); TROPONIN I < 0.02 NG/ML (< 0.10)
--- NOTE | 2020-04-14 07:23 | REPVR ---
PROCEDURE INFORMATION: Exam: XR Chest, 1 View Exam date and time: 04/14/2020 5:58 AM Age: 65 years old Clinical indication: Chest pain TECHNIQUE: Imaging protocol: XR of the chest Views: 1 view. COMPARISON: CR PORTABLE CHEST X-RAY 03/29/2020 3:30 AM FINDINGS: The thorax is partially obscured by overlying EKG leads. Lungs: Hyperinflation, interstitial prominence, and trace basilar airspace disease. Pleural space: No pleural effusion. Heart/Mediastinum: No cardiomegaly. Bones/joints: Osteopenia and degenerative change. IMPRESSION: Hyperinflation, interstitial prominence, and trace basilar airspace disease. Electronically signed by: Mikal Bravo On 04/14/2020 07:23:04 AM
[2020-04-14] MEDS ORDERED: ISOVUE-370 76% 100ML VIAL As Ordered ONE (07:36)
--- NOTE | 2020-04-14 08:20 | REP ---
INDICATION: chest pain/ left arm pain. COMPARISON: AP portable 03/29/2020 TECHNIQUE: CT angiogram chest performed following the intravenous administration of 100 cc of Isovue 370. Sagittal and coronal reconstruction images are performed. FINDINGS: Lungs: Shows some subsegmental atelectasis in the deep sulcus right lower lobe minor dependent atelectatic changes other places in the lower lobe on the right there is no infiltrate, pleural effusion, pleural plaque or pleural based mass. See no nodule, pneumothorax or pneumomediastinum. Mediastinum: No mediastinal hematoma, mass or adenopathy. No hiatal hernia. Pulmonary arteries: The main, right and left pulmonary arteries in the mediastinum are without filling defects. The lobar, segmental and visible subsegmental arteries were unremarkable. Radha: No adenopathy. Axilla: There is no pathologic sized adenopathy. There are surgical clips on the left from prior lymph node dissection and a prior left mastectomy. No supraclavicular mass. Tracheal airway intact. Pleura: No effusion. Heart: Not enlarged. No pericardial thickening or effusion. Some coronary artery calcifications. Thoracic aorta: No aneurysm or dissection. Some vascular calcifications scattered within. Upper abdominal structures: Enlarged left lobe of the liver. No focal mass lesion. Thickening of the adrenal limbs bilaterally consistent with adrenal hyperplasia. A portion of the pancreas and gallbladder included were unremarkable as were the upper poles of kidneys Visualized osseous structures: Demonstrate age-appropriate degenerative changes in the spine with no fracture or destructive lesion in any of the bony structures visible. IMPRESSION: No CT evidence of pulmonary embolism. Aorta without aneurysm. Nothing acute. 9 Status post left mastectomy. <Electronically signed by Denilson Brock > 04/14/20 0816
--- NOTE | 2020-04-14 08:29 | REP ---
INDICATION: LLQ pain. COMPARISON: 01/27/2013 TECHNIQUE: Both of 100 mL Isovue 370 scanning through the abdomen and pelvis with coronal and sagittal reconstructions. FINDINGS: CT abdomen lung bases show some minor dependent atelectatic and subsegmental atelectatic change. No acute infiltrate or effusion. Heart not enlarged. There is no pericardial thickening or effusion. There is no hiatal hernia. Stomach without mass. There is no hepatosplenomegaly, focal hepatic splenic mass nor intrahepatic biliary dilatation. No adjacent ascites. Gallbladder partially contracted but without calcified stone or mass. Adrenal glands show thickened limbs consistent with adrenal hyperplasia. This is unchanged from the previous study in 2013. Pancreas was unremarkable. Kidneys show symmetric enhancement without mass, stone or hydronephrosis. Small bowel loops without dilatation or air-fluid levels. Scattered stool and gas in the abdominal portion of colon with a few scattered diverticula in the left colon without diverticulitis or colitis. Lung window review of all CT slices in the abdomen and pelvis show no perforation or free air. The aorta is without aneurysm no periaortic, retroperitoneal or mesenteric pathologic sized lymph adenopathy. Bone windows show some degenerative disc changes in the lower thoracic and lumbar spine and facet arthropathy. No compression fracture or destructive lesion. CT pelvis: The sacrum, SI joints, pelvis and hips show minor degenerative change without destructive lesions or fracture. Ureters without dilatation stone or displacement from their normal course the bladder without mass, wall thickening or stone. Uterus anteverted not enlarged. No pelvic/adnexal mass. Distal left colons, sigmoid and rectum without colitis or diverticulitis. The cecum shows no inflammatory change adjacent. No visible appendix. There is no ventral or inguinal hernia nor pathologic sized inguinal adenopathy. No pelvic. No pelvic free fluid. IMPRESSION: 1. No evidence of colitis, diverticulitis, obstruction or mass involving colon or small bowel loops. No perforation or free air. 2. There is no renal, ureteral or bladder stone. No hydronephrosis or hydroureter. 3. The solid organs in the upper abdomen, gallbladder stomach unremarkable. No ascites. 4. Bony structures unremarkable. <Electronically signed by Denilson Brock > 04/14/20 [id number]
[2020-04-14 09:36] LABS: CK-MB VALUE MASS 1.6 NG/ML (<3.6); CPK CREATINE PHOSPHOKINASE 154 U/L (26-192); MB/CK RELATIVE INDEX 1.04 (< OR =4); TROPONIN I < 0.02 NG/ML (< 0.10)
[2020-04-14] MEDS ORDERED: BISOPROLOL FUM 2.5 MG PER 1/2TAB PO ONE (09:45)
[2020-04-14 10:00] VITALS: BP 140/60
[2020-04-14 10:03] VITALS: BP 120/63
[2020-04-14] MEDS ORDERED: SUCR1TA PO (10:05)
[2020-04-14] MEDS ORDERED: OMEP40CA97 PO (10:05)
--- NOTE | 2020-04-15 18:51 | ECGEPIP ---
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
--- NOTE | 2020-04-15 18:52 | ECGEPIP ---
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
== END 2020-04-14 10:16 | disposition home or self-care (01) ==
LOC: M ED 05:28
DX: I48.91 Unspecified atrial fibrillation (principal); I45.19 Other right bundle-branch block; E11.9 Type 2 diabetes mellitus without complications; I10 Essential (primary) hypertension; E78.5 Hyperlipidemia, unspecified; F32.9 Major depressive disorder, single episode, unspecified; K21.9 Gastro-esophageal reflux disease without esophagitis; Z91.5 Personal history of self-harm; G47.33 Obstructive sleep apnea (adult) (pediatric); G25.81 Restless legs syndrome; F17.200 Nicotine dependence, unspecified, uncomplicated; Z79.4 Long term (current) use of insulin; Z79.899 Other long term (current) drug therapy; Z88.0 Allergy status to penicillin; Z88.8 Allergy status to other drugs, medicaments and biological substances; Z91.040 Latex allergy status
CPT/HCPCS: 71045; 71275; 74177; 80047; 80076; 82550; 82553; 83690; 84443; 84484; 85025; 85610; 93005; 93041; 99285; Q9967

== ENCOUNTER → 2020-10-21 | Outpatient (REF) | payer MEDICARE, OTHER ==
[~2020-10-21] MED LIST changes: +ATOR1TAB19 PO; +BISO5TAB14 PO; +GABA600T4 PO; +OMEP40CA97 PO; +ROPI2TAB3 PO; +SUCR1TA PO
== END ==
LOC: M SFHCCLAY 15:45
PROVIDERS: ATTEND Family Medicine
DX: E11.9 Type 2 diabetes mellitus without complications (principal); I10 Essential (primary) hypertension
CPT/HCPCS: 83036; G0463

== ENCOUNTER → 2021-01-27 | Outpatient (CLI) | payer MEDICARE, OTHER ==
[~2021-01-27] MED LIST changes: +CENT1TAB PO; +ELIQ5TAB PO; +GINK60TA2 PO; +HYDR12.55 PO; +JANU100T PO; +LISI10TA22 PO; +MELA10CA6 PO; +OMEP40CA4 PO; -OMEP40CA97 PO; +OSTE5TAB PO; +TRAZ-257 PO
== END ==
LOC: M LABSMTC 09:05
PROVIDERS: ATTEND Anesthesiology
DX: Z01.812 Encounter for preprocedural laboratory examination (principal); Z20.822 Contact with and (suspected) exposure to COVID-19

== ENCOUNTER 2021-02-01 07:03 | Day surgery (SDC) | payer MEDICARE, OTHER ==
[~2021-02-01] VITALS: Ht 152.4 cm; Wt 87.5 kg
[~2021-02-01 07:03] MED LIST changes: +NS 1,000 ML IV ONE
[2021-02-01] MEDS ORDERED: propofoL 200 MG/20 ML VIAL As Ordered ONE ×2 (08:52→09:27)
[2021-02-01] MEDS ORDERED: LIDOCAINE 2% INJ 100 MG/5 ML SYRINGE As Ordered ONE (08:53)
[2021-02-01] MEDS ORDERED: fentaNYL 100 MCG/2 ML INJECTION (J3010) As Ordered ONE (09:15)
[2021-02-01 10:15] VITALS: BP 130/62
== END 2021-02-01 10:17 | disposition home or self-care (01) ==
LOC: M OPP 07:03
PROVIDERS: ATTEND Internal Medicine Gastroenterology
DX: Z12.11 Encounter for screening for malignant neoplasm of colon (principal); K63.5 Polyp of colon; K57.30 Diverticulosis of large intestine without perforation or abscess without bleeding; K64.8 Other hemorrhoids; E11.9 Type 2 diabetes mellitus without complications; I48.91 Unspecified atrial fibrillation; Z79.4 Long term (current) use of insulin; Z79.899 Other long term (current) drug therapy; Z88.5 Allergy status to narcotic agent; Z88.8 Allergy status to other drugs, medicaments and biological substances; Z91.040 Latex allergy status; F17.210 Nicotine dependence, cigarettes, uncomplicated
CPT/HCPCS: 45385; 88305; J3010

== ENCOUNTER → 2021-05-09 | Outpatient (CLI) | payer MEDICARE ==
[~2021-05-09] MED LIST changes: -NS 1,000 ML IV ONE
--- NOTE | 2021-05-09 11:20 | REPMRS ---
Patient History The patient states she has not had a clinical breast exam in over a year. Family history of prostate cancer at age 60 in father, unknown cancer in father. Malignant mastectomy of the left breast, 1997. Malignant excisional biopsy of the left breast, 1995. Radiation therapy of the left breast, 1995. Took hormonal contraceptives for 6 months. Took tamoxifen for 4 months. Patient states no breast complaints today. Patient has signed MRS History Sheet. Digital Woman Screen Mammo: May 09, 2021 - Exam #: [id number] Bilateral CC and MLO view(s) were taken. Technologist: She Leavitt, Technologist Prior study comparison: December 24, 2017, right breast digital mammo diagnostic unilateral, performed at [facility]. October 20, 2014, bilateral digital mammo screening bilat, performed at [facility]. FINDINGS: There are scattered fibroglandular densities. Screening. This patient?s lifetime risk for the development of invasive breast cancer can?t be calculated due to her history of breast cancer. Digital screening (2D) mammography was performed of the right breast. Additionally, breast tomosynthesis (3D mammography) was performed bilaterally in the CC and MLO projections. Today's exam was compared to the prior exam/exams. By history, the patient has no complaints of a palpable breast abnormality or other significant breast complaints. The patient is status post left mastectomy due to breast carcinoma. The Volpara volumetric breast density category is B, there are scattered areas of fibroglandular densities. The right breast is unchanged in size and shape. There is no architectural distortion. There are no suspicious masses or calcifications.Once again, stable benign appearing calcifications are seen. IMPRESSION: BI-RADS Category 2- Benign Findings. There is no evidence of malignant alteration of the breast. Routine bilateral screening mammogram recommended at its regularly scheduled annual interval. This mammogram was read with the assistance of [employer],an FDA approved computer aided detection system for mammography. Negative x-ray reports should not delay surgical consultation if a dominant or clinically suspicious mass is present. Not all breast cancers can be identified by mammography. Therefore, we recommend that you continue to perform regular breast self-examination and physical examination and then promptly contact your physician of any concerns or changes. Adenosis and dense breasts may obscure an underlying neoplasm. No significant changes when compared with prior studies. Assessment: BI-RADS/ACR category 2 mammogram. Benign Findings. Recommendation Routine screening mammogram of both breasts in 1 year. Electronically Signed By: Ad Shepherd MD 05/09/21 1272
== END ==
LOC: M WHC 09:18
PROVIDERS: ATTEND Family Medicine
DX: Z12.31 Encounter for screening mammogram for malignant neoplasm of breast (principal); Z90.12 Acquired absence of left breast and nipple; Z85.3 Personal history of malignant neoplasm of breast; Z80.42 Family history of malignant neoplasm of prostate

== ENCOUNTER → 2021-06-14 | Outpatient (REF) | payer MEDICARE, OTHER ==
[2021-06-15 12:08] LABS: HEMOGLOBIN 8.6 g/dl (12.0-15.5); MEAN CORPUSCULAR HEMOGLOBIN 17.1 pg (27.0-33.0); MEAN CORPUSCULAR HGB CONC 25.3 g/dl (32.0-36.5); MEAN CORPUSCULAR VOLUME 67.7 fl (80.0-96.0); PLATELET COUNT, AUTOMATED 336 10^3/uL (150-450); RED BLOOD COUNT 5.02 10^6/uL (4.00-5.40); WHITE BLOOD COUNT 10.7 10^3/uL (4.0-10.0)
[2021-06-15 13:26] LABS: ALBUMIN 3.2 GM/DL (3.2-5.2); ALT/SGPT 20 U/L (12-78); BILIRUBIN,TOTAL 0.3 MG/DL (0.2-1.0); BLOOD UREA NITROGEN 15 MG/DL (7-18); CARBON DIOXIDE LEVEL 28 MEQ/L (21-32); CHLORIDE LEVEL 104 MEQ/L (98-107); GLOMERULAR FILTRATION RATE > 60.0 (>45); GLUCOSE, FASTING 87 MG/DL (70-100); MAGNESIUM LEVEL 2.3 MG/DL (1.8-2.4); POTASSIUM SERUM 4.2 MEQ/L (3.5-5.1); SODIUM LEVEL 139 MEQ/L (136-145); TOTAL PROTEIN 6.4 GM/DL (6.4-8.2)
[2021-06-15 13:37] LABS: CREATININE, URINE 23.3 MG/DL; MALB URINE SIEMENS 7.1 MG/L; MAU/CREAT RATIO 30.4 MCG/MG (0.0-30.0)
[2021-06-15 15:45] LABS: HEMOGLOBIN A1c 6.3 %
== END ==
LOC: M SFHCCLAY 15:31
PROVIDERS: ATTEND Family Medicine
DX: G47.33 Obstructive sleep apnea (adult) (pediatric) (principal); E11.9 Type 2 diabetes mellitus without complications; M62.838 Other muscle spasm

== ENCOUNTER → 2021-06-24 | Outpatient (CLI) | payer MEDICARE, OTHER ==
[2021-06-24 16:43] LABS: HEMATOCRIT 33.6 % (36.0-47.0); HEMOGLOBIN 8.5 g/dl (12.0-15.5); MEAN CORPUSCULAR HEMOGLOBIN 17.1 pg (27.0-33.0); MEAN CORPUSCULAR HGB CONC 25.3 g/dl (32.0-36.5); MEAN CORPUSCULAR VOLUME 67.6 fl (80.0-96.0); PLATELET COUNT, AUTOMATED 293 10^3/uL (150-450); RED BLOOD COUNT 4.97 10^6/uL (4.00-5.40); WHITE BLOOD COUNT 12.3 10^3/uL (4.0-10.0)
[2021-06-24 17:05] LABS: PERCENT SATURATION 11.4 % (13.2-45.0)
== END ==
LOC: M LAB 15:46
PROVIDERS: ATTEND Family Medicine
DX: D50.9 Iron deficiency anemia, unspecified (principal)

== ENCOUNTER → 2021-07-13 | Outpatient (CLI) | payer MEDICARE, OTHER ==
[2021-07-13 15:07] LABS: BLOOD UREA NITROGEN 17 MG/DL (7-18); GLOMERULAR FILTRATION RATE > 60.0 (>45)
== END ==
LOC: M LAB 14:16
PROVIDERS: ATTEND Physician Assistant Medical
DX: D50.9 Iron deficiency anemia, unspecified (principal)

== ENCOUNTER → 2021-08-17 | Outpatient (CLI) | payer MEDICARE, MEDICAID ==
[~2021-08-17] MED LIST changes: +GLUC1TAB58 PO; +INSULADS SC; +IRON65TA2 PO; +PANT40TA29 PO
== END ==
LOC: M LABSMTC 11:11
PROVIDERS: ATTEND Anesthesiology
DX: Z01.818 Encounter for other preprocedural examination (principal); Z11.52 Encounter for screening for COVID-19

== ENCOUNTER 2021-08-22 07:25 | Day surgery (SDC) | payer MEDICARE, MEDICAID ==
[~2021-08-22] VITALS: Ht 152.4 cm; Wt 85.3 kg
[~2021-08-22 07:25] MED LIST changes: +LIDOCAINE 2% 100MG/5ML SDV (FOR ANES.) As Ordered ONE; +NS 1,000 ML IV ONE; +SIMETHICONE 40MG/0.6ML DROPS 30ML As Ordered ONE; +fentaNYL 100 MCG/2 ML INJECTION As Ordered ONE; +propofoL 200 MG/20 ML VIAL As Ordered ONE
[2021-08-22 09:00] VITALS: BP 166/81
== END 2021-08-22 09:11 | disposition home or self-care (01) ==
LOC: M OPP 07:25
PROVIDERS: ATTEND Internal Medicine Gastroenterology
DX: D50.9 Iron deficiency anemia, unspecified (principal); Z88.0 Allergy status to penicillin; Z91.040 Latex allergy status
CPT/HCPCS: 43239; 88305; J3010

== ENCOUNTER → 2021-09-08 | Outpatient (CLI) | payer MEDICARE, OTHER ==
[~2021-09-08] MED LIST changes: -LIDOCAINE 2% 100MG/5ML SDV (FOR ANES.) As Ordered ONE; -NS 1,000 ML IV ONE; -SIMETHICONE 40MG/0.6ML DROPS 30ML As Ordered ONE; -fentaNYL 100 MCG/2 ML INJECTION As Ordered ONE; -propofoL 200 MG/20 ML VIAL As Ordered ONE
[2021-09-08 16:17] LABS: HEMATOCRIT 48.2 % (36.0-47.0); HEMOGLOBIN 14.3 g/dl (12.0-15.5); MEAN CORPUSCULAR HEMOGLOBIN 24.3 pg (27.0-33.0); MEAN CORPUSCULAR HGB CONC 29.7 g/dl (32.0-36.5); PLATELET COUNT, AUTOMATED 193 10^3/uL (150-450); RED BLOOD COUNT 5.88 10^6/uL (4.00-5.40); WHITE BLOOD COUNT 10.6 10^3/uL (4.0-10.0)
[2021-09-08 16:37] LABS: PERCENT SATURATION 13.5 % (13.2-45.0)
== END ==
LOC: M PLALAB 12:58
PROVIDERS: ATTEND Physician Assistant Medical
DX: D50.9 Iron deficiency anemia, unspecified (principal)

== ENCOUNTER → 2021-10-05 | Outpatient (CLI) | payer MEDICARE, MEDICAID | LOC: M CLY 15:39 | PROVIDERS: ATTEND Family Medicine | DX: M25.572 Pain in left ankle and joints of left foot (principal); M79.89 Other specified soft tissue disorders; M19.072 Primary osteoarthritis, left ankle and foot ==

== ENCOUNTER → 2021-12-06 | Outpatient (CLI) | payer MEDICARE, MEDICAID ==
[2021-12-06 15:43] LABS: HEMATOCRIT 47.7 % (36.0-47.0); HEMOGLOBIN 14.7 g/dl (12.0-15.5); MEAN CORPUSCULAR HEMOGLOBIN 26.1 pg (27.0-33.0); MEAN CORPUSCULAR HGB CONC 30.8 g/dl (32.0-36.5); MEAN CORPUSCULAR VOLUME 84.6 fl (80.0-96.0); PLATELET COUNT, AUTOMATED 214 10^3/uL (150-450); RED BLOOD COUNT 5.64 10^6/uL (4.00-5.40); WHITE BLOOD COUNT 11.7 10^3/uL (4.0-10.0)
[2021-12-06 16:04] LABS: PERCENT SATURATION 14.2 % (13.2-45.0)
== END ==
LOC: M LAB 13:54
PROVIDERS: ATTEND Physician Assistant Medical
DX: D50.9 Iron deficiency anemia, unspecified (principal)

== ENCOUNTER → 2022-06-15 | Outpatient (REF) | payer MEDICARE, MEDICAID ==
[2022-06-15 17:59] LABS: HEMOGLOBIN A1c 6.8 % (4.0-6.0)
[2022-06-15 18:01] LABS: BLOOD UREA NITROGEN 10 MG/DL (9-23); CALCIUM LEVEL 9.5 MG/DL (8.3-10.6); CARBON DIOXIDE LEVEL 30 MMOL/L (20-31); CHLORIDE LEVEL 100 MMOL/L (98-107); CREATININE FOR GFR 0.69 MG/DL (0.55-1.30); GLOMERULAR FILTRATION RATE > 60.0 (>45); GLUCOSE, FASTING 159 MG/DL (74-106); POTASSIUM SERUM 4.9 MMOL/L (3.5-5.1); SODIUM LEVEL 138 MMOL/L (136-145)
== END ==
LOC: M SFHCCLAY 10:15
PROVIDERS: ATTEND Family Medicine
DX: E11.9 Type 2 diabetes mellitus without complications (principal)

== ENCOUNTER → 2022-09-05 | Outpatient (REF) | payer MEDICARE, MEDICAID ==
[2022-09-05 19:38] LABS: HEMATOCRIT 47.4 % (36.0-47.0); HEMOGLOBIN 15.4 g/dl (12.0-15.5); MEAN CORPUSCULAR HEMOGLOBIN 29.7 pg (27.0-33.0); MEAN CORPUSCULAR HGB CONC 32.5 g/dl (32.0-36.5); MEAN CORPUSCULAR VOLUME 91.5 fl (80.0-96.0); PLATELET COUNT, AUTOMATED 183 10^3/uL (150-450); RED BLOOD COUNT 5.18 10^6/uL (4.00-5.40); WHITE BLOOD COUNT 12.6 10^3/uL (4.0-10.0)
[2022-09-05 20:05] LABS: CREATININE, URINE 34.4 MG/DL; IRON (FE) 51 UG/DL (50-170); MALB URINE SIEMENS < 3.0 MG/L; MAU/CREAT RATIO 8.7 MCG/MG (0.0-30.0); TOTAL IRON BINDING CAPACITY 318 UG/DL (250-425)
[2022-09-05 20:06] LABS: ALBUMIN 3.5 G/DL (3.2-5.2); ALKALINE PHOSPHATASE 56 U/L (46-116); ALT/SGPT 23 U/L (7.0-40); AST/SGOT 15 U/L (<34); BILIRUBIN,TOTAL 0.2 MG/DL (0.3-1.2); BLOOD UREA NITROGEN 11 MG/DL (9-23); CALCIUM LEVEL 9.5 MG/DL (8.3-10.6); CARBON DIOXIDE LEVEL 29 MMOL/L (20-31); CHLORIDE LEVEL 102 MMOL/L (98-107); CHOLESTEROL LEVEL 134 MG/DL (<200); CHOLESTEROL RISK RATIO 2.85 (<5); CREATININE FOR GFR 0.67 MG/DL (0.55-1.30); GLOMERULAR FILTRATION RATE > 60.0 (>45); GLUCOSE, FASTING 91 MG/DL (74-106); HDL CHOLESTEROL 46.9 MG/DL (>40); LDL CHOLESTEROL 51.1 MG/DL (<100); NON-HDL-C 87.1 MG/DL; POTASSIUM SERUM 4.1 MMOL/L (3.5-5.1); SODIUM LEVEL 140 MMOL/L (136-145); TOTAL PROTEIN 6.2 G/DL (5.7-8.2); TRIGLYCERIDES LEVEL 180 MG/DL (<150)
[2022-09-05 20:20] LABS: HEMOGLOBIN A1c 7.3 % (4.0-6.0)
== END ==
LOC: M SFHCCLAY 13:49
PROVIDERS: ATTEND Family Medicine
DX: D50.8 Other iron deficiency anemias (principal); E11.9 Type 2 diabetes mellitus without complications

== ENCOUNTER → 2022-09-22 | Outpatient (CLI) | payer MEDICARE, MEDICAID | LOC: M SOG 14:53 | PROVIDERS: ATTEND Physician Assistant | DX: M65.341 Trigger finger, right ring finger (principal); M19.041 Primary osteoarthritis, right hand ==

== ENCOUNTER → 2022-12-14 | Outpatient (REF) | payer MEDICARE, MEDICAID ==
[~2022-12-14] MED LIST changes: +COFF1CAP3 PO; -ROPI2TAB3 PO; +ROPI2TAB46 PO
[2022-12-14 20:09] LABS: HEMOGLOBIN A1c 7.6 % (4.0-6.0)
== END ==
LOC: M SFHCCLAY 14:43
PROVIDERS: ATTEND Family Medicine
DX: E11.9 Type 2 diabetes mellitus without complications (principal)

== ENCOUNTER 2023-06-26 14:02 | Emergency (ER) | payer OTHER, MEDICARE, MEDICAID ==
[~2023-06-26] VITALS: Ht 152.4 cm; Wt 92.6 kg
[2023-06-26] MEDS ORDERED: ISOVUE-370 76% 100ML VIAL As Ordered ONE (14:53)
[2023-06-26 16:58] VITALS: BP 132/64; TEMP 97.8; O2SAT 94
== END 2023-06-26 17:01 | disposition home or self-care (01) ==
LOC: M ED 14:02 → EDBD 14:02 → M ED 17:01
DX: S30.1XXA Contusion of abdominal wall, initial encounter (principal); V49.40XA Driver injured in collision with unspecified motor vehicles in traffic accident, initial encounter; G47.33 Obstructive sleep apnea (adult) (pediatric); E11.9 Type 2 diabetes mellitus without complications; I10 Essential (primary) hypertension; E78.5 Hyperlipidemia, unspecified; F17.200 Nicotine dependence, unspecified, uncomplicated; F32.A Depression, unspecified; Z86.79 Personal history of other diseases of the circulatory system; Z79.01 Long term (current) use of anticoagulants; Z79.02 Long term (current) use of antithrombotics/antiplatelets; Z79.891 Long term (current) use of opiate analgesic; Z79.4 Long term (current) use of insulin; Z79.899 Other long term (current) drug therapy
CPT/HCPCS: 36415; 70450; 74177; 80047; 99284; Q9967

== ENCOUNTER → 2024-01-10 | Outpatient (REF) | payer MEDICARE, MEDICAID ==
[2024-01-10 18:12] LABS: HEMOGLOBIN A1c 8.9 % (4.0-6.0)
== END ==
LOC: M SFHCCLAY 14:56
PROVIDERS: ATTEND Family Medicine
DX: E11.9 Type 2 diabetes mellitus without complications (principal)

== ENCOUNTER → 2024-06-01 | Outpatient (REF) | payer MEDICARE, MEDICAID ==
[~2024-06-01] MED LIST changes: +GABA-1490 PO; -GABA600T4 PO
== END ==
LOC: M LAB REF 17:31
PROVIDERS: ATTEND Physician Assistant Medical
DX: R05.9 Cough, unspecified (principal)

== ENCOUNTER 2024-06-09 03:42 | Emergency (ER) | payer MEDICARE, MEDICAID ==
[~2024-06-09] VITALS: Ht 152.4 cm; Wt 90.7 kg
[2024-06-09 04:59] LABS: HEMATOCRIT 45.9 % (36.0-47.0); HEMOGLOBIN 15.3 g/dl (12.0-15.5); MEAN CORPUSCULAR HEMOGLOBIN 28.9 pg (27.0-33.0); MEAN CORPUSCULAR HGB CONC 33.3 g/dl (32.0-36.5); MEAN CORPUSCULAR VOLUME 86.6 fl (80.0-96.0); PLATELET COUNT, AUTOMATED 175 10^3/uL (150-450); WHITE BLOOD COUNT 6.1 10^3/uL (4.0-10.0)
[2024-06-09 05:21] LABS: BLOOD UREA NITROGEN 16 MG/DL (9-23); CALCIUM LEVEL 8.4 MG/DL (8.3-10.6); CARBON DIOXIDE LEVEL 25 MMOL/L (20-31); CHLORIDE LEVEL 99 MMOL/L (98-107); CREATININE FOR GFR 0.69 MG/DL (0.55-1.30); GLOMERULAR FILTRATION RATE > 60.0 (>45); GLUCOSE, FASTING 118 MG/DL (74-106); MAGNESIUM LEVEL 1.9 MG/DL (1.8-2.4); POTASSIUM SERUM 5.4 MMOL/L (3.5-5.1); SODIUM LEVEL 134 MMOL/L (136-145)
[2024-06-09 05:43] LABS: ATYPICAL LYMPH 10 % (0-5); LYMPHOCYTES 14 % (16-44); MONOCYTES 7 % (0-5); NEUTROPHILS 64 % (28-66)
[2024-06-09 05:44] LABS: ANISOCYTOSIS 1+; PLATELET ESTIMATE NORMAL (NORMAL)
[2024-06-09 07:38] VITALS: TEMP 97.3
[2024-06-09] MEDS: NS 500 ML IV ONE (08:45)
[2024-06-09] MEDS: PATIROMER SORBITEX CALCIUM 8.4 GM POWDER PACKET (VELTASSA) PO ONE (08:56)
[2024-06-09 10:26] VITALS: BP 138/64; O2SAT 93
== END 2024-06-09 10:37 | disposition home or self-care (01) ==
LOC: EDBD 03:42 → M ED 03:42
DX: S70.02XA Contusion of left hip, initial encounter (principal); Y92.019 Unspecified place in single-family (private) house as the place of occurrence of the external cause; Y93.9 Activity, unspecified; Y99.9 Unspecified external cause status; W01.0XXA Fall on same level from slipping, tripping and stumbling without subsequent striking against object, initial encounter; R26.81 Unsteadiness on feet; I44.4 Left anterior fascicular block; J44.9 Chronic obstructive pulmonary disease, unspecified; I10 Essential (primary) hypertension; E11.9 Type 2 diabetes mellitus without complications; I48.91 Unspecified atrial fibrillation; G47.33 Obstructive sleep apnea (adult) (pediatric); F17.210 Nicotine dependence, cigarettes, uncomplicated; Z88.0 Allergy status to penicillin; Z88.5 Allergy status to narcotic agent; Z91.040 Latex allergy status; Z79.01 Long term (current) use of anticoagulants; Z79.4 Long term (current) use of insulin; Z79.84 Long term (current) use of oral hypoglycemic drugs; Z79.899 Other long term (current) drug therapy; Z79.810 Long term (current) use of selective estrogen receptor modulators (SERMs)

== ENCOUNTER → 2024-07-22 | Outpatient (CLI) | payer MEDICARE, MEDICAID | LOC: M WHC 08:56 | PROVIDERS: ATTEND Physician Assistant Medical | DX: R10.32 Left lower quadrant pain (principal) ==

== ENCOUNTER → 2024-07-31 | Outpatient (CLI) | payer MEDICARE, MEDICAID ==
[2024-07-31 10:58] LABS: ALBUMIN 3.2 G/DL (3.2-5.2); ALKALINE PHOSPHATASE 51 U/L (35-104); ALT/SGPT 15 U/L (7.0-40); AST/SGOT 11 U/L (<34); BILIRUBIN,TOTAL 0.3 MG/DL (0.3-1.2); BLOOD UREA NITROGEN 8 MG/DL (9-23); CALCIUM LEVEL 9.2 MG/DL (8.3-10.6); CARBON DIOXIDE LEVEL 32 MMOL/L (20-31); CHLORIDE LEVEL 101 MMOL/L (98-107); CHOLESTEROL LEVEL 130 MG/DL (<200); CHOLESTEROL RISK RATIO 2.71 (<5); CREATININE FOR GFR 0.64 MG/DL (0.55-1.30); GLOMERULAR FILTRATION RATE > 60.0 (>45); GLUCOSE, FASTING 187 MG/DL (74-106); HDL CHOLESTEROL 47.9 MG/DL (>40); LDL CHOLESTEROL 57.9 MG/DL (<100); NON-HDL-C 82.1 MG/DL; POTASSIUM SERUM 4.6 MMOL/L (3.5-5.1); SODIUM LEVEL 138 MMOL/L (136-145); TOTAL PROTEIN 6.5 G/DL (5.7-8.2); TRIGLYCERIDES LEVEL 121 MG/DL (<150)
[2024-07-31 11:00] LABS: FREE T4 1.13 NG/DL (0.89-1.76); THYROID STIMULATING HORMONE 1.592 uIU/ML (0.55-4.78)
[2024-07-31 11:39] LABS: HEMOGLOBIN A1c 6.9 % (4.0-6.0)
== END ==
LOC: M LAB 09:36
PROVIDERS: ATTEND Nurse Practitioner Family
DX: Z00.00 Encounter for general adult medical examination without abnormal findings (principal); E11.9 Type 2 diabetes mellitus without complications; Z87.891 Personal history of nicotine dependence; I48.11 Longstanding persistent atrial fibrillation; G25.81 Restless legs syndrome; Z85.3 Personal history of malignant neoplasm of breast; I10 Essential (primary) hypertension

== ENCOUNTER → 2024-12-26 | Outpatient (CLI) | payer MEDICARE, MEDICAID | LOC: M WHC 14:00 | PROVIDERS: ATTEND Internal Medicine Hematology & Oncology | DX: Z12.31 Encounter for screening mammogram for malignant neoplasm of breast (principal); R92.321 Mammographic fibroglandular density, right breast; Z90.12 Acquired absence of left breast and nipple; R92.1 Mammographic calcification found on diagnostic imaging of breast | CPT/HCPCS: 77067; G0279 ==

== ENCOUNTER → 2025-01-05 | Outpatient (CLI) | payer MEDICARE, MEDICAID | LOC: M RAD 13:47 | PROVIDERS: ATTEND Internal Medicine Hematology & Oncology | DX: Z12.2 Encounter for screening for malignant neoplasm of respiratory organs (principal); F17.210 Nicotine dependence, cigarettes, uncomplicated; J98.11 Atelectasis; R91.8 Other nonspecific abnormal finding of lung field; I70.0 Atherosclerosis of aorta; I25.10 Atherosclerotic heart disease of native coronary artery without angina pectoris ==